=== PATIENT | female | born 1950 | race Caucasian/White ===

== ENCOUNTER 2023-04-05 10:13 | Inpatient (IN) | payer MEDICARE, OTHER, SELFPAY ==
[2023-04-05] VITALS (10 sets, daily range): BP systolic 109–147; BP diastolic 50–112; PULSE 80–112; RESP 16–20; TEMP 36.3–37.2; O2SAT 97–100; BMI 26.2
--- NOTE | ~2023-04-05 | XR_ITS ---
EXAMINATION: XR chest 2V DATE: 04/05/2023 11:23 INDICATION: Fall and weakness TECHNIQUE: frontal and lateral views of the chest were obtained. COMPARISON: None FINDINGS: The lungs are clear with no focal airspace opacities, pulmonary edema, pleural effusion or pneumothor ax. The heart size is normal. Tortuous and atherosclerotic thoracic aorta. Thoracolumbar dextroscolio sis with moderate spondylosis. IMPRESSION: 1. No acute cardiopulmonary disease. Reviewed, dictated and finalized at location A.
--- NOTE | ~2023-04-05 | CT_ITS ---
EXAMINATION: CT cervical spine wo con DATE: 04/05/2023 11:28 INDICATION: Fall with head injury TECHNIQUE: Computed tomography (CT) of the cervical spine was performed without intravenous contrast. Automated exposure control and iterative reconstruction technique were employed. The dose-length pro duct was 281.66 mGy-cm. COMPARISON: None FINDINGS: 13 degrees cervical levocurvature. 1-2 mm retrolisthesis C4 on C5. Vertebral body heights are normal. No fracture. Moderate osteoarthritis at the atlantoaxial articulation. Moderate disc height loss at C4-C5, C5-C6, C6-C7 and mild disc height loss at the remaining cervical and upper thoracic levels. Mo derate to severe multilevel cervical uncovertebral osteoarthritis. Posterior disc osteophyte complexe s at C4-C5, C5-C6 and C6-C7 resulting mild central canal stenosis. Multilevel mild to moderate cervic al facet osteoarthritis. Additional severe facet osteoarthritis on the left at T1-T2 and bilaterally at T2-T3. This contributes to multilevel bilateral neural foraminal stenosis throughout the cervical and visualized upper thoracic spine. Small amount of atherosclerotic calcific location at the bilater al carotid bulbs. Cervical soft tissues are otherwise unremarkable. Minimal biapical pleural-parenchy mal scarring. IMPRESSION: 1. 13 degrees cervical levocurvature with moderate spondylosis. No acute osseous abnormality. Reviewed, dictated and finalized at location A. IMPRESSION: 1. 13 degrees cervical levocurvature with moderate spondylosis. No acute osseou s abnormality.
--- NOTE | ~2023-04-05 | XR_ITS ---
EXAMINATION: XR pelvis 1-2V DATE: 04/05/2023 11:23 INDICATION: Fall with weakness TECHNIQUE: An anteroposterior view of the pelvis was obtained. COMPARISON: None. FINDINGS: Partially visualized lumbar levoscoliosis with severe lower lumbar facet osteoarthritis. No fractures . Mild osteoarthritis at the bilateral hip and sacroiliac joints. Several phleboliths in the pelvis. IMPRESSION: 1. No acute osseous abnormality. Reviewed, dictated and finalized at location A.
--- NOTE | ~2023-04-05 | CT_ITS ---
EXAMINATION: CT brain wo con DATE: 04/05/2023 11:28 INDICATION: Fall with head injury and weakness TECHNIQUE: Computed tomography (CT) of the head was performed without intravenous contrast. Sagittal and coronal reconstructions were performed. The mA was adjusted according to patient size. Iterative reconstruction technique was employed. The dose-length product was 605.33 mGy-cm. COMPARISON: None FINDINGS: No fracture. No acute intracranial hemorrhage, acute infarction or abnormal extra axial fluid collect ion. There is mild scattered white matter hypoattenuation consistent with chronic small vessel ischem ic disease. Symmetric prominence of the sulci consistent with mild age-appropriate diffuse cerebral v olume loss. Ventricles are normal and symmetric. No mass/mass effect. Changes of bilateral intraocula r lens replacement. Small amount of dependently layering mucus in the right maxillary sinus. The orbi ts and mastoid air cells are normal. IMPRESSION: 1. No fracture or acute intracranial process. 2. Age-related changes including mild diffuse volume loss and mild scattered white matter hypoattenua tion consistent with chronic small vessel ischemic disease. Reviewed, dictated and finalized at location A. IMPRESSION: 1. No fracture or acute intracranial process. 2. Age-related changes including mild diffuse volume loss and mild scattered wh ite matter hypoattenuation consistent with chronic small vessel ischemic diseas e.
--- NOTE | 2023-04-05 10:29 | ECG_ITS ---
Measurements Intervals [place] Rate: 75 P: 55 RI: 171 QRS: -17 QRSD: 81 T: 19 QT: 417 QTc: 467 Interpretive Statements SINUS RHYTHM LOW QRS VOLTAGE IN PRECORDIAL LEADS [QRS DEFLECTION < 1.0 mV IN CHEST LEADS] NO PREVIOUS ECG AVAILABLE FOR COMPARISON Electronically Signed On 04-05-2023 15:00:01 CDT by Jagruti Pacheco M.D.
--- NOTE | 2023-04-05 10:41 | ED.GENADULT ---
HPI - General Adult General Chief complaint: Unspecified <MARKUS David Last Filed: 04/05/23 15:17> Stated complaint: FALL, ?POOR CIRCULATION TO FEET <MARKUS David Last Filed: 04/05/23 15:17> Time Seen by Provider: 04/05/23 10:25 <MARKUS David Last Filed: 04/05/23 15:17> Source: patient and family <MARKUS David Last Filed: 04/05/23 15:17> Mode of arrival: wheelchair <MARKUS David Last Filed: 04/05/23 15:17> Limitations: other (poor historian) <MARKUS David Last Filed: 04/05/23 15:17> History of Present Illness HPI narrative: This is a 72-year-old female that presents to the emergency department after a ground-level fall last night. Patient's family member brought her in for evaluation. They report she was on the ground for multiple hours that she was unable to get up. She lives alone. Patient does report hitting her head. She does not believe she lost consciousness. She denies any other focal areas of injury or pain. Daughter believes she was drinking last night when she fell. Denies vision changes, vomiting, numbness or weakness. <Glory Singh PA-C - Last Filed: 04/05/23 15:17> Related Data Allergies/adverse reactions: Allergies Allergy/AdvReac Type Severity Reaction Status Date / Time No Known Allergies Allergy Unknown Unverified 06/08/14 15:43 <MARKUS David Last Filed: 04/05/23 15:17> Review of Systems Review of Systems: CONSTITUTIONAL: Denies fever EYES: Denies visual changes CARDIOVASCULAR: Denies chest pain, or edema. RESPIRATORY: Denies dyspnea. GASTROINTESTINAL: Denies vomiting MUSCULOSKELETAL: Denies back pain, joint pain, or myalgia. NEUROLOGIC: Denies headache, numbness, or weakness. <MARKUS David Last Filed: 04/05/23 15:17> All systems reviewed & are unremarkable except as noted in HPI and below <Glory Singh PA-C - Last Filed: 04/05/23 15:17> [facility] Past Medical History Medical History: Medical History (Updated 04/05/23 @ 15:17 by Glory Singh PA-C) Back pain History of hypertension History of hypothyroidism Hyperlipidemia <Glory Singh PA-C - Last Filed: 04/05/23 15:17> Surgical History Surgical History: Surgical History (Updated 04/05/23 @ 14:13 by Emilia Rojas NP) H/O carpal tunnel repair H/O cataract extraction H/O skin graft History of bunionectomy History of tonsillectomy <Glory Singh PA-C - Last Filed: 04/05/23 15:17> Family History Family History: Family History (Updated 04/05/23 @ 14:09 by Emilia Rojas NP) Sibling Thyroid disease Mother Lung cancer <Glory Singh PA-C - Last Filed: 04/05/23 15:17> Social History Social History: Social History (Updated 04/05/23 @ 14:12 by Emilia Rojas NP) Social History: 2 drinks of bourbon daily . no smoke . son and daughter Smoking status: Never smoker Alcohol intake: current Drinks per week: 14 Substance use: never Lack of Transportation: No Lack of Food: Never True Current Housing: I Have Housing Concerned About Future Housing: No Difficulty Paying Gas/Electric Bills: No Difficulty Paying for Meds: No Currently Unemployed: No Education: High School Diploma/GED Difficulty w/ Childcare or Family Care: No Spiritual care concerns: No <Glory Singh PA-C - Last Filed: 04/05/23 15:17> Exam Narrative: GENERAL: Elderly, well-nourished, and in no acute distress. HEAD: Normocephalic, atraumatic. EYES: PERRLA and EOMI. ENT: Nares clear, no rhinorrhea or epistaxis. Mucous membranes moist. Oropharynx without tonsillar hypertrophy exudate or other lesions. Bilateral TMs pearly michaud non-bulging NECK: Supple. No adenopathy or masses. No midline spinal tenderness CHEST: Clear to auscultation. No respiratory distress. No wheezes rales or rhonchi HEART: Regular rate and rhythm. No murmur heard. Nor
[2023-04-05 11:23] LABS: Basophils Absolute Auto 0.1 K/mm3 (0.0-0.1); Basophils Percent Auto 0.5 % (0.2-1.2); Hematocrit 39.9 % (37.0-47.0); Hemoglobin 13.6 g/dL (12.0-15.0); Immature Granulocyte Absolute 0.03 K/mm3 (0.00-0.031); Immature Granulocyte Percent A 0.3 % (0-0.5); Lymphocytes Absolute Auto 0.88 K/mm3 (0.9-3.2); Lymphocytes Percent Auto 8.7 % (18.3-44.2); Mean Corpuscular HGB Conc 34.1 g/dl (32-36); Mean Corpuscular Hemoglobin 36.8 pg (26-34); Mean Corpuscular Volume 107.8 fl (80-100); Mean Platelet Volume 9.1 fl (7.4-10.4); Monocytes Absolute Auto 0.8 K/mm3 (0.1-0.6); Monocytes Percent Auto 7.4 % (2.6-8.5); Neutrophils Absolute Auto 8.4 K/mm3 (1.3-6.7); Neutrophils Percent Auto 83.1 % (45.5-73.1); Platelet Count Result 197 k/mm3 (150-375); Red Cell Distribution Width 12.2 % (11.5-14.5); White Blood Count 10.1 K/mm3 (4.5-10.0)
[2023-04-05] MEDS: SODIUM CHLORIDE 0.9% IV 500 ML 999 ML IV CONT (11:36)
[2023-04-05 11:41] LABS: Macrocytosis 1+ (NORMAL); Platelet Estimate Adequate (Adequate); Schistocytes None Seen (NORMAL)
[2023-04-05 12:00] LABS: Ethanol 208 mg/dL (<10)
[2023-04-05 12:04] LABS: Alanine Aminotransferase 35 U/L (6-35); Albumin Level 4.4 g/dL (3.5-5.1); Alkaline Phosphatase 121 U/L (38-126); Anion Gap 18 mmol/L (8-16); Aspartate Amino Transferase 96 U/L (14-36); Bilirubin,Total 0.8 mg/dL (0.2-1.3); Blood Urea Nitrogen 17 mg/dL (7-17); Calcium 9.3 mg/dL (8.4-10.2); Carbon Dioxide 20 mmol/L (22-30); Chloride 101 mmol/L (98-107); Creatine Kinase 150 U/L (30-135); Estimated CRCL calculation 46 ml/min; Estimated Glomerular Filt Rate > 60; Glucose 60 mg/dL (65-110); Potassium 4.3 mmol/L (3.4-5.0); Sodium 139 mmol/L (137-145)
--- NOTE | 2023-04-05 12:08 | PC.NURSE ---
Pt blood glucose 60, per EDP NABEEL Singh PA-C, pt given soda and jello by this RN at this time.
[2023-04-05 12:49] LABS: Appearance Urine Clear (Clear); Bacteria Urine 4+ /hpf; Bilirubin Urine Negative (Negative); Blood Urine Negative (Negative); Color Urine Yellow (Yellow); Glucose Urine UA Negative (Negative); Hyaline Casts Urine Present /lpf; Ketones Urine Trace mg/dL (Negative); Leukocyte Esterase Ur Negative LEU/UL (Negative); Need Manual Microscopic Reviewed; Nitrate Urine Positive (Negative); Protein Urine Trace mg/dL (Negative); RBC Urine 0-2 /hpf (0-2); Specific Grav Ur 1.015 (1.001-1.035); Squamous Epithelial Cell Urine None seen /hpf (Few); Urobilinogen Urine 0.2 mg/dL (<2.0); WBC Urine 0-5 /hpf; pH Urine 5.5 (5.0-9.0)
[2023-04-05 12:50] LABS: Add Urine Microscopic? YES
[2023-04-05 13:17] LABS: Glucose Point of Care 104 mg/dl (65-105)
--- NOTE | 2023-04-05 14:05 | PM.IMHP ---
H&P: HPI History of Present Illness Date/Time: 04/05/23 14:05 Chief Complaint: Fall Narrative: This is a 72-year-old female patient who lives at home alone. The patient tells me that she drinks 2 glasses of bourbon and sometimes some white wine when she is cooking. This is usually on a daily basis. The patient has had multiple falls. The patient stated that she does call the fire department at times did get her up off the ground. She does not have a call alert button. Her children have been trying to talk to her about getting a call alert button. The patient not came to the emergency room after ground level fall that she had last night. Family member brought her into the emergency room for evaluation. The patient denies hitting her head. The daughter believes that the patient was drinking last night when she fell. The patient denies any focal weakness or any visual changes. No nausea vomiting or diarrhea. She did not lose consciousness. Her white count was found to be 10.0. MCV is 107.8. Her anion gap is 18. Her blood sugar was found to be 60. Repeat blood sugar was 85. AST is 96. Total creatinine kinase 150. Her urine was positive for bacteria nitrates and she was started on Rocephin IV. Cervical spine CT was read as 13 degree cervical levocurvature with moderate spondylosis. No acute osseous abnormality. Pelvis x-ray was read as no acute osseous abnormality. Chest x-ray was read as no acute cardiopulmonary disease. Head CT was read as. No fracture or acute intracranial process. 2. Age-related changes including mild diffuse volume loss and mild scattered white matter hypoattenuation consistent with chronic small vessel disease. The patient was given IV fluids and Rocephin. The patient is being admitted to observation status on the date of service of 04/05/2023. Review of Systems Review of Systems: All systems reviewed & are unremarkable except as noted in HPI and below Constitutional: Constitutional: Reports as per HPI and Reports no additional constitutional complaints Eyes: Eyes: Reports as per HPI and Reports no additional eye complaints ENT: Reports system reviewed and no additional complaints, except as documented and Reports Normal hearing present Cardiovascular: Cardiovascular: Reports no additional cardiovascular complaints Respiratory: Respiratory: Reports no additional respiratory complaints and Reports no additional respiratory complaints Gastrointestinal: Gastrointestinal: Reports as per HPI and Reports no additional gastrointestinal complaints Musculoskeletal: Musculoskeletal: Reports no additional musculoskeletal complaints Integumentary/Breasts: Skin/Breast: Reports system reviewed and no additional complaints, except as docu and Reports as per HPI Neurologic: Reports system reviewed and no additional complaints, except as documented, Reports as per HPI and Reports Normal hearing present Psychiatric: Psychiatric: Reports no additional psychiatric complaints and Reports as per HPI Endocrine: Endocrine: Reports no additional endocrine complaints Hematologic/Lymphatic: Hematologic/Lymphatic: Reports no additional hematologic/lymphatic complaints Allergic/Immunologic: Allergic/Immunologic: Reports no additional allergic/immunologic complaints [facility] Past Medical History Medical History (Updated 04/05/23 @ 18:52 by Emilia Rojas NP) Back pain History of hypertension History of hypothyroidism Hyperlipidemia Surgical History Surgical History (Updated 04/05/23 @ 18:47 by Emilia Rojas NP) H/O bladder repair surgery H/O breast biopsy H/O carpal tunnel repair Left H/O cataract extraction H/O skin graft H/O tubal ligation History of bunionectomy History of tonsillectomy Family History Family History Sibling Thyroid disease Mother Lung cancer Social History Social History (Updated 04/05/23 @ 18:49 by Emilia Rojas NP
[2023-04-05 16:40] LABS: Glucose Point of Care 85 mg/dl (65-105)
[2023-04-05 18:44] LABS: Glucose Point of Care 84 mg/dl (65-105)
[2023-04-05] MEDS: SODIUM CHLORIDE 0.9% IV 1,000 ML 100 ML IV CONT (20:35)
[2023-04-05 21:48] LABS: Glucose Point of Care 90 mg/dl (65-105)
[2023-04-05 23:29] LABS: Glucose Point of Care 83 mg/dl (65-105)
[2023-04-06] VITALS (11 sets, daily range): BP systolic 129–144; BP diastolic 61–78; PULSE 79–102; RESP 16; TEMP 36.4–36.8; O2SAT 98–100
[2023-04-06] MEDS: chlordiazePOXIDE (*CRX) 25 MG CAPSULE 50 MG PO ×3 (00:20→18:51)
[2023-04-06 05:14] LABS: Basophils Absolute Auto 0.1 K/mm3 (0.0-0.1); Basophils Percent Auto 1.1 % (0.2-1.2); Eosinophils Absolute Auto 0.1 K/mm3 (0-0.3); Eosinophils Percent Auto 1.1 % (0-4.4); Hematocrit 36.1 % (37.0-47.0); Hemoglobin 12.3 g/dL (12.0-15.0); Immature Granulocyte Absolute 0.02 K/mm3 (0.00-0.031); Immature Granulocyte Percent A 0.4 % (0-0.5); Lymphocytes Absolute Auto 1.05 K/mm3 (0.9-3.2); Lymphocytes Percent Auto 18.8 % (18.3-44.2); Mean Corpuscular HGB Conc 34.1 g/dl (32-36); Mean Corpuscular Hemoglobin 36.5 pg (26-34); Mean Corpuscular Volume 107.1 fl (80-100); Mean Platelet Volume 9.4 fl (7.4-10.4); Monocytes Absolute Auto 0.6 K/mm3 (0.1-0.6); Monocytes Percent Auto 10.2 % (2.6-8.5); Neutrophils Absolute Auto 3.8 K/mm3 (1.3-6.7); Neutrophils Percent Auto 68.4 % (45.5-73.1); Platelet Count Result 172 k/mm3 (150-375); Red Blood Count 3.37 M/mm3 (4.2-5.4); Red Cell Distribution Width 11.7 % (11.5-14.5); White Blood Count 5.6 K/mm3 (4.5-10.0)
[2023-04-06 05:19] LABS: Lactic Acid Reflex 0.7 mmol/L (0.7-2.0)
[2023-04-06 05:25] LABS: Chloride 101 mmol/L (98-107)
[2023-04-06 05:29] LABS: Alanine Aminotransferase 30 U/L (6-35); Albumin Level 3.7 g/dL (3.5-5.1); Alkaline Phosphatase 101 U/L (38-126); Anion Gap 8 mmol/L (8-16); Aspartate Amino Transferase 64 U/L (14-36); Blood Urea Nitrogen 21 mg/dL (7-17); Calcium 8.4 mg/dL (8.4-10.2); Carbon Dioxide 24 mmol/L (22-30); Creatine Kinase 81 U/L (30-135); Estimated CRCL calculation 46 ml/min; Estimated Glomerular Filt Rate > 60; Glucose 80 mg/dL (65-110); Magnesium 1.5 mg/dL (1.6-2.3); Potassium 4.2 mmol/L (3.4-5.0); Sodium 133 mmol/L (137-145)
[2023-04-06] MEDS: SODIUM CHLORIDE 0.9% IV 1,000 ML 100 ML IV CONT (06:17)
[2023-04-06] MEDS: LEVOTHYROXINE SODIUM 50 MCG TABLET PO (09:50)
[2023-04-06] MEDS: EZETIMIBE 10 MG TABLET PO (09:52)
[2023-04-06] MEDS: TELMISARTAN 40 MG TABLET 80 MG PO (09:52)
[2023-04-06 11:53] LABS: Glucose Point of Care 117 mg/dl (65-105)
--- NOTE | 2023-04-06 13:46 | PM.IMPN ---
Progress Note: A&P Assessment and Plan (1) Hypoglycemia: Code(s): E16.2 - Hypoglycemia, unspecified Status: Acute Assessment and Plan: improved (2) Fall: Code(s): W19.XXXA - Unspecified fall, initial encounter Status: Acute Assessment and Plan: Head CT 04/05/23 12:01 IMPRESSION: 1. No fracture or acute intracranial process. 2. Age-related changes including mild diffuse volume loss and mild scattered white matter hypoattenuation consistent with chronic small vessel ischemic disease. Chest X-Ray 04/05/23 12:19 IMPRESSION: 1. No acute cardiopulmonary disease. Pelvis X-Ray 04/05/23 12:20 IMPRESSION: 1. No acute osseous abnormality. Cervical Spine CT 04/05/23 12:25 IMPRESSION: 1. 13 degrees cervical levocurvature with moderate spondylosis. No acute osseous abnormality. retail marketing coordinator consult greatly be appreciated. retail marketing coordinator for home health or placement. The patient lives home alone. The patient was found to be intoxicated. PT and OT evaluation greatly be appreciated. I spoke with the son and daughter who stated that they will get her call alert button. Also the patient has UTI and will be treated for UTI which may be causing her weakness. Most likely multifactorial if she had elevated alcohol level of 208. (3) Alcohol intoxication: Qualifiers: Complication of substance-induced condition: uncomplicated Qualified Code(s): F10.920 - Alcohol use, unspecified with intoxication, uncomplicated Code(s): F10.929 - Alcohol use, unspecified with intoxication, unspecified Status: Acute Assessment and Plan: Her alcohol level was 208. Continue with CIWA score. retail marketing coordinator consult was greatly be appreciated. (4) Hyperlipidemia: Code(s): E78.5 - Hyperlipidemia, unspecified Status: Acute Assessment and Plan: Continue with Zetia (5) History of hypothyroidism: Code(s): Z86.39 - Personal history of other endocrine, nutritional and metabolic disease Status: Acute Assessment and Plan: Continue with levothyroxine and check thyroid level. (6) History of hypertension: Code(s): Z86.79 - Personal history of other diseases of the circulatory system Status: Acute Assessment and Plan: History of hypertension and current. Continue with telmisartan (7) Acute UTI: Code(s): N39.0 - Urinary tract infection, site not specified Status: Acute Assessment and Plan: Blood and urine cultures are pending continue with Rocephin. Plan pt ot for dc recs Subjective Date/time seen: 04/06/23 13:46 Interval history: no complaints Exam Const: General: cooperative, healthy appearing, comfortable, no acute distress, well developed, alert, awake, Physically active, average body habitus and well nourished Nutritional Appearance: average body habitus and well nourished Orientation/consciousness: oriented to person, oriented to place, oriented to time and patient oriented x3 Limitations: no limitations HENMT: Head: normal to inspection, No palpable skull fracture present, normocephalic, atraumatic and abrasion Ears: hearing grossly normal bilaterally, external ears normal and TM's normal bilaterally Face/Nose/Sinus: Normal external nose present, Normal nares present and No nasal polyps present Mouth: Yes Normal oral and palatal mucosa present Throat: posterior oropharynx normal Eyes: General: appearance normal, both eyes and all related structures Alignment and Position: alignment normal Periorbital: periorbital findings normal Eyelids: eyelids normal Conjunctivae: conjunctivae normal Sclera: sclerae normal Cornea: corneas normal Pupils: Equal, round and reactive pupils present and Pupil accommodation reflex normal EOM: EOMs intact bilaterally Neck: Neck: normal visual inspection, full ROM, no lymphadenopathy, trachea midline and supple Thyroid: thyroid normal Carotids: n
--- NOTE | 2023-04-06 16:34 | PC.NURSE ---
This patient, Joya Antonio, was transferred to [facility] on 04/06/23 at 1634. Personal belongings sent with patient. Report given to Aimee MASON. Appropriate documentation sent with patient.
[2023-04-06] MEDS: LORazepam INJ (*CRX) 2 MG/ML VIAL IV PUSH (17:12)
[2023-04-06 18:06] LABS: Glucose Point of Care 115 mg/dl (65-105)
[2023-04-07] VITALS: BP 137/67; PULSE 78; RESP 16; TEMP 35.9; O2SAT 98
[2023-04-07 00:14] LABS: Glucose Point of Care 138 mg/dl (65-105)
[2023-04-07 06:26] VITALS: BP 131/66; PULSE 74; RESP 16; TEMP 35.7; O2SAT 100
[2023-04-07 06:49] LABS: Glucose Point of Care 97 mg/dl (65-105)
[2023-04-07] MEDS: TELMISARTAN 40 MG TABLET 80 MG PO (08:30)
[2023-04-07] MEDS: LEVOTHYROXINE SODIUM 50 MCG TABLET PO (08:30)
[2023-04-07] MEDS: EZETIMIBE 10 MG TABLET PO (08:30)
--- NOTE | 2023-04-07 11:00 | PM.DS ---
DS: Admitting Diagnosis Discharge Date April 07, 2023 Admitting Diagnosis Fall DS: Discharge Diagnosis Discharge Diagnosis (1) Hypoglycemia: Code(s): E16.2 - Hypoglycemia, unspecified Status: Acute Assessment and Plan: improved (2) Fall: Code(s): W19.XXXA - Unspecified fall, initial encounter Status: Acute Assessment and Plan: Head CT 04/05/23 12:01 IMPRESSION: 1. No fracture or acute intracranial process. 2. Age-related changes including mild diffuse volume loss and mild scattered white matter hypoattenuation consistent with chronic small vessel ischemic disease. Chest X-Ray 04/05/23 12:19 IMPRESSION: 1. No acute cardiopulmonary disease. Pelvis X-Ray 04/05/23 12:20 IMPRESSION: 1. No acute osseous abnormality. Cervical Spine CT 04/05/23 12:25 IMPRESSION: 1. 13 degrees cervical levocurvature with moderate spondylosis. No acute osseous abnormality. marketing technology coordinator consult greatly be appreciated. marketing technology coordinator for home health or placement. The patient lives home alone. The patient was found to be intoxicated. PT and OT evaluation greatly be appreciated. I spoke with the son and daughter who stated that they will get her call alert button. Also the patient has UTI and will be treated for UTI which may be causing her weakness. Most likely multifactorial if she had elevated alcohol level of 208. (3) Alcohol intoxication: Qualifiers: Complication of substance-induced condition: uncomplicated Qualified Code(s): F10.920 - Alcohol use, unspecified with intoxication, uncomplicated Code(s): F10.929 - Alcohol use, unspecified with intoxication, unspecified Status: Acute Assessment and Plan: Her alcohol level was 208. Continue with CIWA score. marketing technology coordinator consult was greatly be appreciated. (4) Hyperlipidemia: Code(s): E78.5 - Hyperlipidemia, unspecified Status: Acute Assessment and Plan: Continue with Zetia (5) History of hypothyroidism: Code(s): Z86.39 - Personal history of other endocrine, nutritional and metabolic disease Status: Acute Assessment and Plan: Continue with levothyroxine and check thyroid level. (6) History of hypertension: Code(s): Z86.79 - Personal history of other diseases of the circulatory system Status: Acute Assessment and Plan: History of hypertension and current. Continue with telmisartan (7) Acute UTI: Code(s): N39.0 - Urinary tract infection, site not specified Status: Acute Assessment and Plan: Blood and urine cultures are pending continue with Rocephin. Plan pt ot for dc recs DS: Summary Hospital Course Hospital Course: Fall, likely related to acute alcohol intoxication. Also found have a slight UTI. Antibiotics on discharge. Otherwise patient was working with physical therapy and doing normal activities. She is at risk for falling again especially if she consumes alcohol. Patient can be discharged. Time Spent with Patient Time attestation: Total time spent providing and/or coordinating discharge services: Exam Const: General: cooperative, healthy appearing, comfortable, no acute distress, well developed, alert, awake, Physically active, average body habitus and well nourished Nutritional Appearance: average body habitus and well nourished Orientation/consciousness: oriented to person, oriented to place, oriented to time and patient oriented x3 Limitations: no limitations HENMT: Head: normal to inspection, No palpable skull fracture present, normocephalic, atraumatic and abrasion Ears: hearing grossly normal bilaterally, external ears normal and TM's normal bilaterally Face/Nose/Sinus: Normal external nose present, Normal nares present and No nasal polyps present Mouth: Yes Normal oral and palatal mucosa present Throat: posterior oropharynx normal Eyes: General: appearance normal, both eyes and all re
[2023-04-07 11:29] LABS: Glucose Point of Care 102 mg/dl (65-105)
== END 2023-04-07 13:40 | disposition home or self-care (01) | DRG 897 ==
LOC: ANHED 10:38 → ANHIMU 14:37 → ANH3MEDSUR 04-06 16:16
PROVIDERS: Nurse Practitioner; Admitting Provider Family Medicine; Emergency Provider Physician Assistant; PCP Nurse Practitioner; Visit Provider Chiropractor
DX: F10.920 Alcohol use, unspecified with intoxication, uncomplicated (principal); N39.0 Urinary tract infection, site not specified; W19.XXXA Unspecified fall, initial encounter; Y90.7 Blood alcohol level of 200-239 mg/100 ml; E78.5 Hyperlipidemia, unspecified; E16.2 Hypoglycemia, unspecified; E03.9 Hypothyroidism, unspecified; I10 Essential (primary) hypertension; M47.812 Spondylosis without myelopathy or radiculopathy, cervical region
CPT/HCPCS: 36415; 70450; 71046; 72125; 72170; 80053; 80307; 81001; 82550; 82948; 83605; 83735; 84443; 85025; 87040; 87086; 87088; 93005; 96361; 96365; 96366; 97161; 99285; A9270; G0378; J0696; J2060; J7030; J7040

== ENCOUNTER 2024-02-25 09:42 | Emergency (ER) | payer MEDICARE, OTHER, SELFPAY ==
--- NOTE | ~2024-02-25 | XR_ITS ---
EXAMINATION: XR chest 2V DATE: 02/25/2024 12:06 INDICATION: Fall. Weakness. Right neck lump. TECHNIQUE: Frontal and lateral views of the chest were obtained. COMPARISON: Chest 2 views 04/05/2023 FINDINGS: There is no pneumonia, pleural effusion, or pneumothorax. The heart size is normal. IMPRESSION: 1. No acute cardiopulmonary disease. Reviewed, dictated and finalized at location A.
--- NOTE | ~2024-02-25 | CT_ITS ---
EXAMINATION: CT lumbar spine wo con DATE: 02/25/2024 11:45 INDICATION: Low back pain. Fall. TECHNIQUE: Computed tomography (CT) of the lumbar spine was performed without intravenous contrast. A utomated exposure control and iterative reconstruction technique were employed. The dose-length produ ct was 864.09 mGy-cm. COMPARISON: None FINDINGS: There is 33 degrees levoscoliosis of lumbar spine. There is mild chronic anterior wedging o f L1 vertebral body. There is severely decreased disc height at T10-T11 and T11-T12, moderately decre ased disc height at T12-L1, severely decreased disc height from L1-L2 through L3-L4, moderately decre ased disc height at L4-L5, and severely decreased disc height at L5-S1. The following disc levels are specifically discussed: L1-L2: The disc is bulging. There is mild bilateral facet joint osteoarthritis. There is mild bilater al neural foraminal stenosis. There is mild central canal stenosis. L2-L3: The disc is bulging. There is mild bilateral facet joint osteoarthritis. There is mild bilater al neural foraminal stenosis. There is mild central canal stenosis. L3-L4: The disc is bulging. There is severe bilateral facet joint osteoarthritis. There is mild bilat eral neural foraminal stenosis. There is mild central canal stenosis. L4-L5: The disc is bulging. There is severe bilateral facet joint osteoarthritis. There is moderate b ilateral neural foraminal stenosis. There is moderate central canal stenosis. L5-S1: The disc is bulging. There is severe bilateral facet joint osteoarthritis. There is mild right and moderate left neural foraminal stenosis. There is mild central canal stenosis. IMPRESSION: 1. No fracture. 2. Severe lumbar spondylosis. 3. Lumbar levoscoliosis. Reviewed, dictated and finalized at location A.
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
--- NOTE | ~2024-02-25 | CT_ITS ---
EXAMINATION: CT cervical spine wo con DATE: 02/25/2024 11:45 INDICATION: Neck injury. Fall. Right neck swelling. Neck pain. TECHNIQUE: Computed tomography (CT) of the cervical spine was performed without intravenous contrast. Automated exposure control and iterative reconstruction technique were employed. The dose-length pro duct was 369.27 mGy-cm. COMPARISON: CT cervical spine 04/05/2023 FINDINGS: There is 5 degrees levocurvature of cervical spine. Vertebral body heights are normal. Ther e is moderately decreased disc height at C3-C4, severely decreased disc height at C4-C5, moderately d ecreased disc height at C5-C6 and C6-C7. The following disc levels are specifically discussed: C2-C3: There is mild left uncovertebral joint osteoarthritis. There is mild bilateral facet joint ost eoarthritis. There is mild left neural foraminal stenosis. There is no central canal stenosis. C3-C4: There is moderate bilateral uncovertebral joint osteoarthritis. There is moderate right and mi ld left facet joint osteoarthritis. There is mild bilateral neural foraminal stenosis. There is no ce ntral canal stenosis. C4-C5: There is severe bilateral uncovertebral joint osteoarthritis. There is moderate bilateral face t joint osteoarthritis. There is mild right and moderate left neural foraminal stenosis. There is mil d central canal stenosis. C5-C6: There is severe bilateral uncovertebral joint osteoarthritis. There is mild bilateral facet keren int osteoarthritis. There is mild bilateral neural foraminal stenosis. There is mild central canal st enosis. C6-C7: There is severe bilateral uncovertebral joint osteoarthritis. There is mild bilateral facet keren int osteoarthritis. There is mild bilateral neural foraminal stenosis. There is mild central canal st enosis. C7-T1: There is no uncovertebral joint osteoarthritis. There is severe bilateral facet joint osteoart hritis. There is mild bilateral neural foraminal stenosis. There is no central canal stenosis. IMPRESSION: 1. No fracture. 2. Severe cervical spondylosis. Reviewed, dictated and finalized at location A.
[2024-02-25 09:47] VITALS: BP 137/66; PULSE 91; RESP 12; TEMP 36.4; O2SAT 100
--- NOTE | 2024-02-25 10:02 | ED.NECK ---
HPI - Neck Pain/Injury General Chief Complaint: Neck Pain/Injury Stated Complaint: R NECK SWELLING S/P FALL Time Seen by Provider: 02/25/24 09:47 Source: patient and family Mode of arrival: ambulatory Limitations: no limitations History of Present Illness HPI Narrative: This is a 73-year-old female that presents to the emergency department after a head injury Friday. Reports she woke up in the middle the night to use the restroom. She lost her balance and fell and hit her head on the bathtub she believes. She did not lose consciousness. The next day she went to urgent care and had an x-ray of her sacrum which showed a fracture. Since she has had swelling and pain on the right side of her neck which prompted her family to bring her in for evaluation. They believe she has been mildly confused. She does not take any blood thinners. Denies vision changes, vomiting, numbness, weakness. Related Data Home Medications Medication Instructions Recorded Confirmed ezetimibe 10 mg tablet 10 mg PO DAILY 04/05/23 04/05/23 levothyroxine 50 mcg tablet 50 mcg PO DAILY 04/05/23 04/05/23 telmisartan 80 mg tablet 80 mg PO DAILY 04/05/23 04/05/23 Allergies Allergy/AdvReac Type Severity Reaction Status Date / Time No Known Allergies Allergy Unknown Verified 02/25/24 09:52 Review of Systems Review of Systems: CONSTITUTIONAL: Denies fever EYES: Denies visual changes GASTROINTESTINAL: Denies vomiting MUSCULOSKELETAL: Reports back pain, joint pain, and myalgia. NEUROLOGIC: Denies numbness, or weakness. All systems reviewed & are unremarkable except as noted in HPI and below [facility] Past Medical History Medical History (Updated 02/25/24 @ 13:18 by Glory Singh PA-C) Back pain History of hypertension History of hypothyroidism Hyperlipidemia Surgical History Surgical History (Updated 04/05/23 @ 18:47 by Emilia Rojas NP) H/O bladder repair surgery H/O breast biopsy H/O carpal tunnel repair Left H/O cataract extraction H/O skin graft H/O tubal ligation History of bunionectomy History of tonsillectomy Family History Family History Sibling Thyroid disease Mother Lung cancer Social History Social History (Updated 04/05/23 @ 18:49 by Emilia Rojas NP) Social History: She had 2 drinks of bourbon daily and sometimes has a glass of white wine when she cooks. She is a lifelong nonsmoker. She is . She has a son and daughter. 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 Code status full code Smoking status: Never smoker Alcohol intake: current Drinks per week: 14 Substance use: never Lack of Transportation: No Lack of Food: Never True Current Housing: I Have Housing Concerned About Future Housing: No Difficulty Paying Gas/Electric Bills: No Difficulty Paying for Meds: No Currently Unemployed: No Education: High School Diploma/GED Difficulty w/ Childcare or Family Care: No Spiritual care concerns: No Exam Narrative: GENERAL: Well-appearing, well-nourished, and in no acute distress. HEAD: Normocephalic, atraumatic. EYES: PERRLA and EOMI. ENT: Nares clear, no rhinorrhea or epistaxis. Mucous membranes moist. Oropharynx without tonsillar hypertrophy exudate or other lesions. Bilateral TMs pearly michaud non-bulging NECK: Supple. Hematoma to the right side of the neck anteriorly CHEST: Clear to auscultation. No respiratory distress. No wheezes rales or rhonchi HEART: Regular rate and rhythm. No murmur heard. Normal peripheral pulses. BACK: No midline thoracic spine tenderness. Tender to palpation of midline lumbar spine EXTREMITIES: Normal range of motion. No edema. Strength equal in bilateral upper and lower extremities (5/5) SKIN: Warm, dry, no rash. NEURO: No focal deficits. Alert and oriented x3. CN II-XII grossly intact PSYCH: Normal mood and affect Course Course Emerg
[2024-02-25 10:13] VITALS: BP 127/84; PULSE 92; RESP 14; O2SAT 99
[2024-02-25 10:21] LABS: Basophils Percent Auto 0.7 % (0.2-1.2); Eosinophils Absolute Auto 0.2 K/mm3 (0-0.3); Eosinophils Percent Auto 2.8 % (0-4.4); Hematocrit 38.3 % (37.0-47.0); Hemoglobin 13.1 g/dL (12.0-15.0); Immature Granulocyte Absolute 0.02 K/mm3 (0.00-0.031); Immature Granulocyte Percent A 0.3 % (0-0.5); Lymphocytes Absolute Auto 0.87 K/mm3 (0.9-3.2); Lymphocytes Percent Auto 14.6 % (18.3-44.2); Mean Corpuscular HGB Conc 34.2 g/dl (32-36); Mean Corpuscular Hemoglobin 36.5 pg (26-34); Mean Corpuscular Volume 106.7 fl (80-100); Mean Platelet Volume 9.6 fl (7.4-10.4); Monocytes Absolute Auto 0.8 K/mm3 (0.1-0.6); Monocytes Percent Auto 13.9 % (2.6-8.5); Neutrophils Percent Auto 67.7 % (45.5-73.1); Platelet Count Result 225 k/mm3 (150-375); Red Blood Count 3.59 M/mm3 (4.2-5.4); Red Cell Distribution Width 12.1 % (11.5-14.5)
[2024-02-25 10:52] LABS: Anion Gap 7 mmol/L (4-12); Blood Urea Nitrogen 14 mg/dL (7-17); Calcium 9.2 mg/dL (8.4-10.2); Carbon Dioxide 25 mmol/L (22-30); Chloride 98 mmol/L (98-107); Estimated Glomerular Filt Rate > 60; Glucose 105 mg/dL (65-110); Potassium 4.5 mmol/L (3.4-5.0); Sodium 130 mmol/L (137-145)
[2024-02-25 12:20] VITALS: BP 134/69; PULSE 91; RESP 18; O2SAT 97
[2024-02-25 13:32] VITALS: BP 126/67; PULSE 85; RESP 16; O2SAT 100
== END 2024-02-25 13:40 | disposition home or self-care (01) ==
PROVIDERS: Emergency Provider Physician Assistant; PCP Nurse Practitioner Family
DX: S10.93XA Contusion of unspecified part of neck, initial encounter (principal); E87.1 Hypo-osmolality and hyponatremia; I10 Essential (primary) hypertension; E03.9 Hypothyroidism, unspecified; E78.5 Hyperlipidemia, unspecified; Z98.49 Cataract extraction status, unspecified eye; Z79.899 Other long term (current) drug therapy; M47.812 Spondylosis without myelopathy or radiculopathy, cervical region; M47.816 Spondylosis without myelopathy or radiculopathy, lumbar region; W01.198A Fall on same level from slipping, tripping and stumbling with subsequent striking against other object, initial encounter
CPT/HCPCS: 36415; 70496; 70498; 71046; 72125; 72131; 80048; 85025; 99284; Q9967

== ENCOUNTER 2025-03-24 21:13 | Inpatient (IN) | payer MEDICARE, OTHER, SELFPAY ==
--- NOTE | ~2025-03-24 | CT_ITS ---
EXAMINATION: CT brain wo con DATE: 03/24/2025 22:26 INDICATION: Altered mental status post fall TECHNIQUE: Computed tomography (CT) of the head was performed without intravenous contrast. Sagittal and coronal reconstructions were performed. The mA was adjusted according to patient size. Iterative reconstruction technique was employed. The dose-length product was 681.00 mGy-cm. COMPARISON: head CT dated 02/25/2024 FINDINGS: No acute intracranial hemorrhage, acute infarction or abnormal extra axial fluid collection. There is mild scattered white matter hypoattenuation consistent with chronic small vessel ischemic disease. S ymmetric prominence of the sulci consistent with mild age-appropriate diffuse cerebral volume loss. A nd ventricles are normal and symmetric. No mass/mass effect. Changes of bilateral intraocular lens re placement. The orbits, paranasal sinuses and mastoid air cells are normal. IMPRESSION: 1. No acute intracranial process. 2. Age-related changes including mild diffuse volume loss and mild scattered white matter hypoattenua tion consistent with chronic small vessel ischemic disease. Reviewed, dictated and finalized at location A. IMPRESSION: 1. No acute intracranial process. 2. Age-related changes including mild diffuse volume loss and mild scattered wh ite matter hypoattenuation consistent with chronic small vessel ischemic diseas e.
--- NOTE | ~2025-03-24 | CT_ITS ---
EXAMINATION: 1. CT facial & cervical spine wo DATE: 03/24/2025 22:34 INDICATION: Fall with bruising to the left eye TECHNIQUE: 1. Computed tomography (CT) of the maxillofacial region and of the cervical spine were performed with out intravenous contrast. Sagittal and coronal reconstructions of both regions were obtained. Automat ed exposure control and iterative reconstruction technique were employed. The dose-length product was mGy-cm. COMPARISON: None. FINDINGS: Maxillofacial CT: Anterior left frontal/left supraorbital scalp hematoma. No calvarial fracture. No maxillofacial fract ures. Specifically the mandible, nasal bones, zygomatic arches and king of the orbits and paranasal sinuses are all intact. Changes of bilateral intraocular lens replacement. Orbits are otherwise norm al. Mastoid air cells, middle ear cavities and paranasal sinuses are all clear. Multiple dental daren rations. Cervical spine CT: Alignment is normal. Vertebral body heights are normal. No acute fracture. Severe disc height loss at C4-C5 and T1-T2. Mild disc height loss at C2-C3 and C7-T1 and moderate disc height loss at remaining cervical levels. Posterior endplate osteophytes contribute to mild central canal stenosis at C4-C5 t hrough C6-C7. There is severe bilateral uncovertebral osteoarthritis at C4-C5 with mild to moderate u ncovertebral osteoarthritis the remaining cervical levels. Mild to moderate multilevel facet osteoart hritis in the cervical spine and moderate to severe facet osteoarthritis the visualized upper thoraci c spine. The facet and vertebral osteoarthritis contributing to moderate neural foraminal stenosis on the left at C4-C5 and T2 and mild neural foraminal stenosis at majority the remaining cervical and u pper thoracic neural foramina. A scar calcific a cyst at the bilateral carotid bulbs. Cervical soft t issues are otherwise unremarkable. Mild biapical pleural-parenchymal scarring. IMPRESSION: 1. Left supraorbital scalp hematoma with no calvarial or maxillofacial fracture. 2. Severe cervical and upper thoracic spondylosis with no acute osseous abnormality. Reviewed, dictated and finalized at location A. IMPRESSION: 1. Left supraorbital scalp hematoma with no calvarial or maxillofacial fracture . 2. Severe cervical and upper thoracic spondylosis with no acute osseous abnorma lity.
--- NOTE | ~2025-03-24 | US_ITS ---
EXAMINATION: US carotid duplex BI DATE: 03/25/2025 17:51 INDICATION: Carotid atherosclerosis TECHNIQUE: Grayscale, color Doppler, and pulsed Doppler images of the cervical carotid arteries were obtained. The degree of vessel stenosis is placed in one of the following categories: normal, <50%, 5 0-69%, >=70% but less than near-occlusion, near-occlusion, or total occlusion. Note that percent sten osis relative to normal distal artery lumen diameter is indirectly measured from velocity measurement s as described by Suraj, et al. Radiology 2003; 229:340-346. COMPARISON: Carotid CT angiogram dated 02/25/2024 FINDINGS: RIGHT: The right common carotid artery (CCA) peak systolic velocity (PSV) is 61 cm/s. The right internal car otid artery (ICA) PSV is 64 cm/s. The right ICA end-diastolic velocity (EDV) is 15 cm/s. The right IC A/CCA PSV ratio is 1.0. Grayscale and color Doppler images yield an estimate of <50% diameter reducti on from plaque in the ICA. The external carotid artery (ECA) PSV is 90 cm/s. There is antegrade flow in the right vertebral artery. LEFT: The left CCA PSV is 71 cm/s. The left ICA PSV is 63 cm/s. The left ICA EDV is 16 cm/s. The left ICA/C CA PSV ratio is 0.9. Grayscale and color Doppler images yield an estimate of <50% diameter reduction from plaque in the ICA. The ECA PSV is 71 cm/s. There is antegrade flow in the left vertebral artery. IMPRESSION: 1. <50% stenosis in the right internal carotid artery. 2. <50% stenosis in the left internal carotid artery. Reviewed, dictated and finalized at location A.
--- NOTE | ~2025-03-24 | XR_ITS ---
EXAMINATION: XR chest 1V portable DATE: 03/24/2025 22:40 INDICATION: Altered mental status. Fall. TECHNIQUE: frontal view of the chest was obtained. COMPARISON: Chest radiograph dated 02/25/2024 FINDINGS: Calcified nodule at the right lung base consistent with old granulomatous disease. No other airspace opacities, pulmonary edema, pleural effusion or pneumothorax. Heart size is normal. Tortuous thoracic aorta. Mild thoracolumbar dextrocurvature with moderate spondylosis. IMPRESSION: 1. No acute cardiopulmonary disease. Reviewed, dictated and finalized at location A.
--- NOTE | ~2025-03-24 | CT_ITS ---
EXAMINATION: CT chest abdomen pelvis w con DATE: 03/24/2025 23:32 INDICATION: Altered mental status. Found on ground. Transaminitis. TECHNIQUE: Computed tomography (CT) of the chest, abdomen, and pelvis was performed with 100 mL Omnip aque-350 intravenous contrast. Automated exposure control and iterative reconstruction technique were employed. The dose-length product was 672.86 mGy-cm. COMPARISON: None FINDINGS: CHEST CT: Mild dependent atelectasis in the bilateral lower lobes. No pneumonia, pulmonary edema, pleural effus ion or pneumothorax. Calcite left upper lobe nodules along with calcified right hilar lymph nodes con sistent with old granulomatous disease. Heart size is normal. Atherosclerotic coronary artery calcifi c lesion. Prominent aortic valve calcific lesion. Thoracic aorta is normal in caliber with no dissect ion. No pathologically enlarged thoracic lymphadenopathy. Small sliding-type hiatal hernia. Severe th oracic spondylosis. Mild thoracolumbar dextrocurvature with mild likely physiologic anterior wedging at T12. No acute fractures identified. ABDOMEN/PELVIS CT: Nodular cirrhotic liver. Recanalized umbilical vein consistent with portal venous hypertension. A few small calcified gallstones at the dependent aspect of the otherwise normal gallbladder. Several sple ghada calcific lesions consistent with old granulomatous disease. Pancreas, bilateral adrenal glands an d kidneys are normal. There are few scattered clonic diverticula without adjacent inflammatory strand ing to suggest diverticulitis. Small bowel and appendix are normal. Bladder, retroverted uterus and b ilateral adnexa are unremarkable. No free intraperitoneal gas or fluid. No pathologically enlarged ab dominal or pelvic lymphadenopathy. Moderate lumbar levocurvature with severe spondylosis. No fracture s identified. IMPRESSION: 1. No acute fracture or acute intrathoracic, abdominal or pelvic process. 2. Cirrhosis with portal venous hypertension. 3. Cholelithiasis. 4. Small sliding-type hiatal hernia. Reviewed, dictated and finalized at location A.
[2025-03-24 21:15] VITALS: BP 115/68; PULSE 96; RESP 14; TEMP 36.8; O2SAT 100
--- NOTE | 2025-03-24 21:15 | ECG_ITS ---
Test Date: 2025-03-24 21:38:07 Measurements Intervals Bernard Rate: 85 P: 40 PA: 154 QRS: -21 QRSD: 75 T: 6 QT: 368 QTc: 440 Interpretive Statements SINUS RHYTHM LOW QRS VOLTAGE IN PRECORDIAL LEADS [QRS DEFLECTION < 1.0 mV IN CHEST LEADS] No previous ECG available for comparison Electronically Signed On 03-26-2025 18:24:10 CDT by Loc Moore M.D.
--- OUTSIDE RECORDS SUMMARY | 2025-03-24 21:15 | XMS_ITS ---
Author Organization [facility] ghada Address [address] [place] [address] Care Team Providers Care Filter Cleaner Name Role Phone Chuy Navarrete Primary Care Provider REASON FOR VISIT back pain Encounters Encounter Location Date Provider Diagnosis [facility] [address] [facility] [facility] [address] [place] [address] 11/10/2024 Chuy Navarrete Plan Of Treatment No Information Progress Notes * Joya PUGHDOB:[birth year] (74 yo F)Acc No.[id number]:11/10/2024 New Patient Patient: Joya GARCIA Provider: Lolis NAVARRETE MD :1950 A ge:74 Y S ex:Female Date:11/10/2024 Address:[address] [place] [address] Subjective: * Chief Complaints: * 1 . Back pain. * Medical History: Objective: * Vitals: Assessment: Plan: * Treatment: * Billing Information: * Visit Code: * Procedure Codes: * Electronic signature of Abiodun Navarrete MD on 03/24/2025 at 09:15 PM CDT Sign off status: Pending * Provider: Lolis NAVARRETE MD Date: 11/10/2024 Generated for Luis Daniel roth/Ayush/eTkaliesmitting on: 0 03/24/2025 09:15 PM CDT
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
--- OUTSIDE RECORDS SUMMARY | 2025-03-24 21:15 | XMS_ITS | Encounter Summary ---
Author Organization [facility] Address [address] [place] [address] Phone Care Team Providers Care Computer Operator Name Role Phone Jimmy Mcdaniel MD Primary Care Provider [phone] Marce An MD Primary Care Provider [phone] Janet Martinez NP Primary Care Provider [phone] Axel Levy MD Unavailable Encounter Details Date Type Department Care Team (Latest Contact Info) Description 11/17/2017 Orders Only [facility] CONVERSION Scanning, Provider Social History Tobacco Use Types Packs/Day Years Used Date Smoking Tobacco: Never Comments Unknown Sex and Gender Information Value Date Recorded Sex Assigned at Not on file Legal Sex Female 2:10 AM FICTION WRITER Gender Identity Not on file Sexual Orientation Not on file documented as of this encounter Plan of Treatment Not on file documented as of this encounter Procedures Procedure Name Priority Date/Time Associated Diagnosis Comments VASCULAR LABORATORY REPORT 11/17/2017 3:29 PM CDT documented in this encounter Results * VASCULAR LABORATORY REPORT (11/17/2017 3:29 PM CDT) Anatomical Region Laterality Modality Ultrasound us Provider Scanning CV VASCULAR PROCEDURES Final R esult documented in this encounter Visit Diagnoses Not on filedocumented in this encounter Additional Health Concerns Infection Onset Date Last Indicated Resolved Time COVID: Suspected 09/03/2022 09/03/2022 09/03/2022 10:52 AM FICTION WRITER documented as of this encounter Care Teams Computer Operator Relationship Specialty Start Date End Date Jimmy Mcdaniel MD PCP - General Internal Medicine 11/13/20 12/10/21 Marce An MD PCP - General 12/11/21 06/23/23 Janet Martinez NP [address] [id number] PCP - General Family Medicine 06/24/23 Axel Levy MD [address] [address] Referring Physician Cardiology 06/24/23 documented as of this encounter
--- OUTSIDE RECORDS SUMMARY | 2025-03-24 21:15 | XMS_ITS | Encounter Summary ---
Author Organization [facility] Healthcare Address [address] [place] [address] Care Team Providers Care Field Scout Name Role Phone Janet Martinez NP Primary Care Provider [phone] Axel Levy MD Unavailable [phone] Reason for Visit * Auth/Cert (Routine) Specialty Diagnoses / Procedures Referred By Rody t Referred To Contact Diagnoses Personal history of colonic polyps Encounter for screening colonoscopy Personal history of colonic polyps [Z86.010] Encounter for screening colonoscopy [Z12.11] Procedures ID COLONOSCOPY FLX DX W/COLLJ SPEC WHEN PFRMD COLONOSCOPY Referral ID Status Reason Start Date Expiration Date Visits Re quested Visits Authorized [id number] 1 1 Encounter Details Date Type Department Care Team (Late st Contact Info) Description 01/12/2025 Hospital Encounter [facility] [address] [place] [address] Orville Hernández MD [address] [place] [address] [address] SETH[address] [place] [id number] Social History Tobacco Use Types Packs/Day Years [...] on file Legal Sex Female 2:10 AM GUEST EXPERIENCE CAPTAIN Gender Identity Not on file Sexual Orientation Not on file documented as of this encounter Plan of Treatment Not on file documented as of this encounter Visit Diagnoses Diagnosis Medicare annual wellness visit, subsequent documented in this encounter Admitting Diagnoses Diagnosis Personal history of colonic polyps Encounter for screening colonoscopy Medicare annual wellness visit, subsequent documented in this encounter Care Teams Field Scout Relationship Specialty Start Date End Date Janet Martinez NP [address] [facility] [address] [place] [address] PCP - General Family Medicine 06/24/23 Axel Levy MD [facility] [address] [place] [address] Referring Physician Cardiology 06/24/23 documented as of this encounter
--- OUTSIDE RECORDS SUMMARY | 2025-03-24 21:15 | XMS_ITS | Clinical Summary ---
Author Organization [facility] Address [address] [place] [address] Care Team Providers Care Private Wealth Advisor Name Role Phone Russell Fields MD Unavailable Fransisco Borjas MD Unavailable Amy Baez DATA LEAD Unavailable [phone] Janet Martinez DATA LEAD Primary Care Provider [phone] Allergies Active Allergy Reactions Criticality Noted Date Comments Statins Myalgias Medium 12/12/2020 Medications * This document contains information received from the source organization and may not represent a complete record from that organization. clobetasol 0.05 % ointmentIndication s:pt not using at this time Apply topically 2 (two) times daily as needed. Indications: pt not using at this time Apply sparingly Active METAMUCIL FIBER OR Take by mouth daily. Active vitamin C (ASCORBIC ACID) 500 MG Chew Tab chewable tablet Acti ve Cholecalciferol 250 MCG (34807 UT) Cap daily. Active Apoaequorin (PREVAGEN) 10 MG Cap Take by mouth daily. Active red yeast rice extract 600 MG Cap Take 500 mg by mouth daily. Active ezetimibe (ZETIA) 10 MG tabletIndications: Hyperlipidemia, unspecified hyperlipidemia type TAKE 1 TABLET BY MOUTH EVERY DAY 90 tablet 1 3 Active levothyroxine (SYNTHROID) 50 MCG tabletIndications: Hypothyroidism, unspecified type TAKE 1 TABLET BY MOUTH EVERY DAY 90 tablet 1 3 Active Telmisartan 80 MG TabIndications:Hyp ertension, unspecified type TAKE 1 TABLET BY MOUTH EVERY DAY 90 tablet 1 3 Active hydrOXYzine (ATARAX) 25 MG tablet TAKE 1 TABLET BY MOUTH THREE TIMES A DAY NEEDED FOR ITCHING OR ANXIETY *NOT COVERED* 4 Active Active Problems Problem Noted Date Diagnosed Date Fall, subsequent encounter 01/02/2022 Hepatitis C 09/04/2021 Change in bowel habit 02/09/2021 Overview (02/09/2021): Added automatically from request for surgery [id number] Fatty stool (HHS/HCC) 02/09/2021 Overview (02/09/2021): Added automatically from request for surgery [id number] History of colon polyps 02/09/2021 Overview (02/09/2021): Added automatically from request for surgery [id number] Hyperlipidemia, unspecified hyperlipidemia type 12/12/2020 Hypertension, unspecified type 12/12/2020 Lumbar degenerative disc disease 12/12/2020 Hypothyroidism, unspecified type 12/12/2020 Abnormal stools 12/12/2020 Rash and nonspecific skin eruption 12/12/2020 Incontinence of feces, unspecified fecal inconti nence type 12/12/2020 Immunizations Immunization Administration Dates Next Due Fluzone High Dose - >Age 65 (Prefilled Syringe) 05/29/2022,06/13/2021,06/09/2019,2013 Influenza Adult (Generic) 06/09/2019,06/15/2014 MODERNA COVID-19 (12+) MRNA, LNP-S, PF, 100 MCG/ 0.5 ML DOSE 06/29/2021,11/21/2020,10/12/2020 Shingrix 03/05/2022,01/02/2022 Tdap (Generic) 11/29/2019 Family History Medical History Relation Comments Lung Cancer Mother Hypertension Sister Stroke Sister Relation Status Comments Mother Sister Social History Tobacco Use Types Packs/Day Years Used Date Smoking Tobacco: Never Smokeless Tobacco: Never Tobacco Cessation:Counseling Given: No Alcohol Use Standard Drinks/Week Comments Yes 40.3 (1 standard drink = 0.6 oz pure alcohol) AUDIT-C Answer Date Recorded Q1: How often do you have a drink containing alcohol? 4 or more times a week 10/08/2022 Q2: How many drinks containi ng alcohol do you have on a typical day when you are drinking? Patient declined Q3: How often do you have si x or more drinks on one occasion? Never 10/08/2022 PHQ-2 Answer Date Recorded Patient Health Questionnaire-2 Score 0 05/20/2023 Comments No Sex and Gender Information Value Date Recorded Sex Assigned at Not on file Legal Sex Female 8:56 AM CDT Gender Identity Not on file Sexual Orientation Not on file Last Filed Vital Signs Vital Sign Reading Time Taken Comments Blood Pressure 136/80 01/08/2024 11:03 AM CDT Pulse 72 01/08/2024 11:03 AM CDT Temperature 36.9 C (98.4 F) 05/20/2023 11:25 AM CDT Respiratory Rate 18 05/20/2023 11:25 AM CDT Oxygen Saturation 99% 05/20/2023 11:25 AM CDT Inhaled Oxygen Concentration - - Weight 69.4 kg (153 lb) 01/08/2024 11:03 AM CDT Height 160 cm (5' 3) 01/08/2024 11:03 AM CDT Body Mass Index 27.1 01/08/2024 11:03 AM CDT Plan of Treatment Health Maintenance Due Date Last Done Comments Pneumococcal Vaccine: 50+ Years (1 of 1 - PCV) 1998 RSV Immunization or 60+ Years (1 - 1-dose 75+ series) 2023 Annual Medicare Wellness Visit 10/09/2023 10/08/2022 COVID-19 Vaccine (4 2023-2 5 season) 2024 06/29/2021, 11/21/2020, 10/12/2020 PHQ-2 (Physician [place]) 09/01/2024 05/20/2023 DTaP, Tdap and Td Vaccines ( 2 - Td or Tdap) 11/28/2029 11/29/2019 Colorectal Cancer Screening Colonoscopy (10 Years) Discontinued 02/21/2021, 12/04/2016, 12/04/2016 Hepatitis C Completed 09/04/2021, 07/13/2021, 07/03/2021 Dexa Scan (General) Completed 01/16/2022 Zoster Vaccines Completed 03/05/2022, 01/02/2022 Meningococcal B Vaccine Aged Out No l onger eligible based on patient's age to complete this topic Meningococcal Vaccine Aged Out No [place] eligible based on patient's age to complete this topic RSV Immunizations Under 20 Months Aged Out No longer eligible based on patient's age to complete this topic Medical Devices Implanted Type Area Patrol Officer Device Identifier Shelf Expiration Date Model / Serial / Lot Iol Naeem [id number]/31/20 17 Implanted:Qty: 1 on 05/01/2017 by Russell Fields MD Lens Right: Eye NAEEM - SURGICAL DIV [id number] / [id number] / Iol Naeem [id number]/28/20 17 Implanted:Qty: 1 on 05/29/2017 by Russell Fields MD Lens Left: Eye NAEEM - SURGICAL DIV [id number] / [id number] / Screw Screw Right: Toe Procedures Procedure Name Priority Date/Time Associated Diagnosis Comments BONE DENSITY/DEXA Routine 01/16/2022 12: 41 PM CDT Alcohol use Screening for osteoporosis Postmenopausal COLONOSCOPY GENERIC (SCAN ORDER) 12/04/2016 from Last 3 Months or Most Recently Relevant to Health Maintenance Results * BONE DENSITY/DEXA (01/16/2022 12:41 PM CDT) Anatomical Region Laterality Modality Bone Bone Density 01/16/2022 12:4 4 PM CDT Narrative 01/16/2022 12:46 PM CDT IMAGING STUDIES: BONE DENSITY/DEXA DATE: 01/16/2022 12:30 PM CLINICAL HISTORY: 71-year-old female with menopause at age 43. No calcium therapy.. FINDINGS: LUMBAR SPINE L2-L4: BMD: 1.214 g/sq cm T-SCORE: 1.2 WHO CLASSIFICATION: Normal young adult range FRACTURE RISK: Negligible LEFT FEMORAL NECK: BMD: 0.700 T-SCORE: -1.3 WHO CLASSIFICATION: Mild osteopenia FRACTURE RISK: Very low Recommendation. Possible instigation of calcium replacement therapy with repeat imaging in 2 years. I would rely in the left femoral neck findings. Lumbar findings are elevated due to degenerative change and scoliosis Ordered By: MARCE AN Interpreted By: Kingsley Thompson, 01/16/2022 12:44 PM Procedure Note Trav Thompson MD - 01/16/2022 IMAGING STUDIES: BONE DENSITY/DEXA DATE: 01/16/2022 12:30 PM CLINICAL HISTORY: 71-year-old female with menopause at age 43.No calcium therapy.. FINDINGS: LUMBAR SPINE L2-L4: BMD: 1.214 g/sq cm T-SCORE: 1.2 WHO CLASSIFICATION: Normal young adult range FRACTURE RISK: Negligible LEFT FEMORAL NECK: BMD: 0.700 T-SCORE: -1.3 WHO CLASSIFICATION: Mild osteopenia FRACTURE RISK: Very low Recommendation. Possible instigation of calcium replacement therapy withrepeat imaging in 2 years. I would rely in the left femoral neck findings. Lumbar findings areelevated due to degenerative change and scoliosis Ordered By: MARCE AN Interpreted By: Kingsley Thompson, 01/16/2022 12:44 PM us Marce An MANAGER RETAIL DEXA Final Res ult * COLONOSCOPY GENERIC (12/04/2016) 12/04/2016 Narrative 12/04/2016 Ordered by an unspecified provider. us Documents Scanned SCANNING Final Result from Last 3 Months or Most Recently Relevant to Health Maintenance Insurance MEDICARE [employer] Care Teams Private Wealth Advisor Relationship Specialty Start Date End Date Janet Martinez FNP [address] [address] PCP - General Nurse Practitioner Family 07/08/23 Russell Fields MD Referring Physician OPHTHALMOLOGY 02/06/21 Fransisco Borjas MD [address] [place] [address] DERMATOLOGY 02/06/21 Amy Baez FNP [address] [address] Nurse Practitioner CARDIOLOGY 10/08/22
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
--- OUTSIDE RECORDS SUMMARY | 2025-03-24 21:15 | XMS_ITS | Clinical Summary ---
Author Organization [facility] Address [address] [place] [address] Care Team Providers Care Loading Unit Operator Name Role Phone Florencio Wilson MD Primary Care Provider Unavailabl e Source Comments [facility],non-owned Affiliates and Associated Physician Practices is amultiple site organization consisting of ambulatory clinics and hospital sitesin [place], [place], [place] and [place]. This disclosure is being madepursuant to the Care Everywhere program and may not contain all information available regarding this patient. Last updated 18.[facility] Allergies No known active allergies Medications * Be aware that medications may not be up to date on this document. Alwaysverify current medications with the patient. ezetimibe (ZETIA) 10 MG tablet Take 10 mg by mouth once daily Active telmisartan (MICARDIS) 40 MG tablet Take 80 mg by mouth once daily Active Active Problems Problem Noted Date Diagnosed Date Laceration of right upper extremity 12/07/2019 Immunizations Immunization Administration Dates Next Due INFLUENZA VACCINE, HIGH-DOSE , QUADR. (FLUZONE HIGH-DOSE QUADRIVALENT; 65Y+), 0.7 ML (HD-IIV4) 06/09/2019 TDAP (7yrs+) 11/29/2019 Social History Tobacco Use Types Packs/Day Years Used Date Smoking Tobacco: Never Smokeless Tobacco: Never Alcohol Use Standard Drinks/Week Comments Yes 20 (1 standard drink = 0.6 oz pu re alcohol) Comments No Sex and Gender Information Value Date Recorded Sex Assigned at Not on file Legal Sex Female 11:36 AM CDT Gender Identity Not on file Sexual Orientation Not on file Last Filed Vital Signs Vital Sign Reading Time Taken Comments Blood Pressure 145/77 12/14/2019 2:05 PM CDT Pulse 106 12/07/2019 1:53 PM CDT Temperature 36.2 C (97.2 F) 12/14/2019 2:05 PM CDT Respiratory Rate 16 11/29/2019 6:00 AM CDT Oxygen Saturation 98% 12/07/2019 1:53 PM CDT Inhaled Oxygen Concentration - - Weight 76.7 kg (169 lb) 12/14/2019 2:05 PM CDT Height 160 cm (5' 3) 12/14/2019 2:05 PM CDT Body Mass Index 29.94 12/14/2019 2:05 PM CDT Plan of Treatment Health Maintenance Due Date Last Done Comments BONE DENSITY TESTING 1950 HEPATITIS C SCREENING 04/12/1968 PNEUMOCOCCAL VACCINE 50+ (1 of 1 - PCV) 1998 ZOSTER VACCINE (1 of 2) 1998 Respiratory Syncytial Virus (RSV) Vaccine Pt: or over 60 yrs (1 - 1-dose 75+ series) 2023 COVID-19 VACCINE (1 - 2023-2 5 season) 2024 DEPRESSION SCREENING 09/01/2024 INFLUENZA VACCINE (#1) 2025 06/09/2019 DTAP/TDAP/TD VACCINES (2 - T d or Tdap) 11/28/2029 11/29/2019 HEPATITIS B VACCINE Aged Out No longe r eligible based on patient's age to complete this topic HIB VACCINE Aged Out No longer eligi ble based on patient's age to complete this topic HPV VACCINE Aged Out No longer eligi ble based on patient's age to complete this topic MENINGOCOCCAL (Group B) VACC INE SHARED DECISION-MAKING Aged Out No longer eligibl e based on patient's age to complete this topic MENINGOCOCCAL GROUPS A/C/Y/W VACCINE Aged Out No longer eligible b ased on patient's age to complete this topic Insurance [employer] [place] [address] [employer] Member Subscriber Plan / Payer (Ef fective 2014-) Name:Joya Pugh Relation to Subscriber:Self Name:Joya Pugh Payer ID:Not on file Group ID:Not on file Type:[employer] Address: [facility] [address] [place], [place] MEDICARE Care Teams Loading Unit Operator Relationship Specialty Start Date End Date Florencio Wilson MD PCP - General Internal Medicine 11/26/19
--- OUTSIDE RECORDS SUMMARY | 2025-03-24 21:15 | XMS_ITS | Encounter Summary ---
Author Organization [facility] Address [facility] [place] [address] Care Team Providers Care Seasoning Mixer Name Role Phone BetoJulia martinezheather Oro NP Primary Care Provider [phone] Russell Fields MD Unavailable [phone] Fransisco Borjas MD Unavailable Amy Baez SALON PROFESSIONAL Unavailable [phone] Janet Martinez SALON PROFESSIONAL Primary Care Provider [phone] Encounter Details Date Type Department Care Team (Late st Contact Info) Description 02/09/2021 Prep for Procedure [facility] [address] [place], [place] [id number] Jones Da Silva MD [address] [address] Social History Tobacco Use Types Packs/Day Years Used Date Smoking Tobacco: Never Smokeless Tobacco: Never Alcohol Use Standard Drinks/Week Comments Yes 40.3 (1 standard drink = 0.6 oz pure alcohol) AUDIT-C Answer Date Recorded Q1: How often do you have a drink containing alc ohol? Monthly or less 12/12/2020 Q2: How many drinks containi ng alcohol do you have on a typical day when you are drinking? 1 or 2 12/12/2020 Q3: How often do you have si x or more drinks on one occasion? Weekly 12/12/2020 PHQ-2 Answer Date Recorded PHQ-2 Score - If the patient scores above 3, please move on to questions 3-9 2 02/06/2021 Comments No Sex and Gender Information Value Date Recorded Sex Assigned at Not on file Legal Sex Female 8:56 AM CDT Gender Identity Not on file Sexual Orientation Not on file COVID-19 Exposure Response Date Recorded In the last month, have you been in contact with someone who was confirmed or suspected to have Coronavirus / COVID-19? No / Unsure 02/08/2021 12:57 PM CDT documented as of this encounter Plan of Treatment Not on file documented as of this encounter Visit Diagnoses Diagnosis Preop testing- Primary Preoperative examination, unspecified documented in this encounter Additional Health Concerns Assessment Noted Time PHQ-9 Depression Total Score: 6 02/07/20 10:58 AM CDT documented as of this encounter Care Teams Seasoning Mixer Relationship Specialty Start Date End Date Marce An NP [address] [place] [address] PCP - General NURSE PRACTITIONER 12/01/20 07/07/23 Janet Martinez FNP [address] [address] PCP - General Nurse Practitioner [facility] 07/08/23 Russell Fields MD [address] [place] [address] Referring Physician OPHTHALMOLOGY 02/06/21 [place] [address] [place] [address] DERMATOLOGY 02/06/21 Amy Baez FNP [address] [address] Nurse Practitioner CARDIOLOGY 10/08/22 documented as of this encounter
--- OUTSIDE RECORDS SUMMARY | 2025-03-24 21:15 | XMS_ITS | Continuity of Care Document ---
Author Name [facility] Organization [facility] Care Team Providers Care Diesel Power Shovel Operator Name Role Phone [facility] Unavailable Unavailable Social History Combined list of available smoking, tobacco, and other social history from Department of Defense and Veterans Affairs facilities. Social History Type Response Date Comment Sourc e This section is an empty social history section. [facility]
--- OUTSIDE RECORDS SUMMARY | 2025-03-24 21:15 | XMS_ITS | Clinical Summary ---
Author Organization [facility] Care Team Providers Care Vehicle Safety Inspector Name Role Phone Unavailable Primary Care Provider Unavailabl e Social History Tobacco Use Types Packs/Day Years Used Date Smoking Tobacco: Never Assessed Comments Unknown Sex and Gender Information Value Date Recorded Sex Assigned at Not on file Legal Sex Female 1:07 PM COMMERCIAL ACCOUNTANT Gender Identity Not on file Sexual Orientation Not on file Plan of Treatment Health Maintenance Due Date Last Done Comments Hepatitis C Virus (HCV) Screening 1950 TdaP Immunization 1950 Pneumococcal Immunization (5 0+ years) (1 of 1 - PCV) 1998 Zoster Immunization (1 of 2) 1998 Respiratory Syncytial Virus (RSV) Immunization (Adult) (1 - 1-dose 75+ series) 2023 SARS-COV-2 Immunization (1 - 2023- season) 2024 Influenza Immunization (#1) 2025 10/0 05/2019, 06/15/2014 Hepatitis B Immunization Aged Out No longer eligible based on patient's age to complete this topic Human Papillomavirus (HPV) Immunization Aged Out No longer eligible b ased on patient's age to complete this topic Meningococcal Immunization (ACWY) Aged Out No longer eligible b ased on patient's age to complete this topic Rotavirus Immunization Aged Out No lo nger eligible based on patient's age to complete this topic
--- OUTSIDE RECORDS SUMMARY | 2025-03-24 21:15 | XMS_ITS | Patient Health Record ---
Author Organization [facility] Address [address] [place] [address] Care Team Providers Care Circular Ripsaw Operator Name Role Phone Chuy Nevarez Primary Care Provider Reason For Referral No Information Medications Medication SIG (Take, Route, Frequency, Duration) Notes Start Date End Date Status Ezetimibe *Pick strength-form from Medispan for eRX* Active Telmisartan *Pick strength-form from Medispan for eRX* Active Vitamin D3 *Pick strength-form from Medispan for eRX* Active Red Yeast Rice *Pick strength-form from Medispan for eRX* Active Ciprofloxacin 3 days for UTI *Pick strength-form from Medispan for eRX* Active One Daily *Pick strength-form from Medispan for eRX* Active Zetia 10mg 1 QD *Pick strength-form from Medispan for eRX* Not-Taking Micardis 80mg 1 QD *Pick strength-form from Medispan for eRX* Not-Taking Problems Problem Type SNOMED Code ICD Code Onset Dates Problem Status W/U Status Risk Notes Problem Solitary sacroiliitis (813573883) Sacroiliitis, not elsewhere classified (720.2) Active confirmed Problem Solitary sacroiliitis (530728030) Sacroiliitis, not elsewhere classified (M46.1) Active confirmed Problem Other specified inflammatory spondylopathies, 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) Active confirmed Problem Trochanteric bursitis of right hip (823202575463456 ) Trochanteric bursitis, right hip (M70.61) Active confirmed Problem Lumbosacral spondylosis without myelopathy (04038655) Lumbar facet arthrop (721.3) Active confirmed Encounters Encounter Location Date Provider Diagnosis [facility] [address] [place] [address] 10/18/2024 Chuy Nevarez Plan Of Treatment Pending Test Test Name Order Date MAJOR JOINT INJECTION WITH ULTRASOUND MAJOR JOINT INJECTION WITH ULTRASOUND Insurance Providers Payer Name Payer Address Payer Phone Subscriber Number Group Number Insured Name Patient Relationship to Insured Coverage Start Date Coverage End Date Medicare [address] [address] [place] [address] [id number] Joya Antonio Self - patient is the insured Physician [employer] [address] [place] [id number] Joya Antonio Self - patient is the insured Medical (General) History Medical History History ICD Code HTN Rheumatoid arthritis Surgical History Surgery Date(Month/Year) tonsillectomy and adenoidectomy 1967 breast biopsy tubal ligation skin graft 1996 plantar neuroma 1992 bunionectomy 2009 carpal tunnel release 1999 Left hand & back biopsies 2007 Left middle finger cyst removal 2009 Cystocele/rectocele 2014
--- OUTSIDE RECORDS SUMMARY | 2025-03-24 21:16 | XMS_ITS ---
Author Organization [facility] Address [address] [place] [address] Care Team Providers Care Rv Technician Name Role Phone Chuy Navarrete Primary Care Provider [phone] REASON FOR VISIT back pain Encounters Encounter Location Date Provider Diagnosis [facility] [id number] [facility] [address] [place] [address] 12/15/2024 Chuy Navarrete Plan Of Treatment No Information Progress Notes * Joya PUGHDOB:[birth year] (74 yo F)Acc No.[id number]:12/15/2024 New Patient Patient: Joya GARCIA Provider: Lolis NAVARRETE MD :1950 A ge:74 Y S ex:Female Date:12/15/2024 Address:[address] [place] [address] Subjective: * Chief Complaints: * 1 . Back pain. * Medical History: Objective: * Vitals: Assessment: Plan: * Treatment: * Billing Information: * Visit Code: * Procedure Codes: * Electronic signature of Abiodun Navarrete MD on 03/24/2025 at 09:15 PM CDT Sign off status: Pending * Provider: Lolis NAVARRETE MD Date: 12/15/2024 Generated for Luis Daniel roth/Ayush/eTjoelitting on: 0 03/24/2025 09:15 PM CDT
--- OUTSIDE RECORDS SUMMARY | 2025-03-24 21:16 | XMS_ITS | Continuity of Care Document ---
Author Organization [facility] Address [address] [place] [address] Phone Care Team Providers Care Conductor And Engineer Name Role Phone Hargrove OD, Man Unavailable Unavailable Advance Directives Directive Yes / No Effective Date File Name No Information Encounters Encounter Description Practice Location Reason(s) For Visit Diagnoses Date Provider Providers Copied on Encounter [facility], [address], [place], [place], [id number], [place] tel:[phone] [facility] [place] No Information Juvenal-2 3[address] 6 Hargrove OD Man. [address] [place] , [address], [place], [address], [place]. tel:[phone] Family History Family Member Type Diagnosis Age At Onset No Information Payers Payer name Insurance type Covered constitution party ID Authoriza tion(s) No Information Social History Type Description Quantity Date Captured Comments Sex Female Smoking Status No Information Chief Complaint And Reason For Visit No Information Reason For Referral Reason For Referral No Information History Of Present Illness Encounter Date Complaint History Of Prese nt Illness No Information Functional Status Date Functional Assessmen t No Information Instructions Date Instruction Additional Infor mation No Information Assessments Type Assessment Date No Information Patient Care Teams Name Effective Dates (start - stop) Status Members No Information
[2025-03-24 21:45] LABS: Hematocrit 32.7 % (37.0-47.0); Hemoglobin 10.6 g/dL (12.0-15.0); Immature Granulocyte Percent A 0.4 % (0-0.5); Lymphocytes Absolute Auto 1.08 K/mm3 (0.9-3.2); Mean Corpuscular HGB Conc 32.4 g/dl (32-36); Mean Corpuscular Hemoglobin 29.4 pg (26-34); Mean Corpuscular Volume 90.8 fl (80-100); Nucleated Red Blood Cells Absolute Auto 0.000 K/mm3 (0.0-0.012); Nucleated Red Blood Cells Perc 0.0 % (0.0-0.2); Platelet Count Result 308 k/mm3 (150-375); Red Blood Count 3.60 M/mm3 (4.2-5.4); White Blood Count 9.4 K/mm3 (4.5-10.0)
--- NOTE | 2025-03-24 21:53 | ED.AMS ---
HPI - Altered Mental Status General Chief Complaint: Altered Mental Status Stated Complaint: Fall, confused-found on floor Time Seen by Provider: 03/24/25 21:41 Source: patient and family (Son, [id number]) History of Present Illness HPI narrative: Patient presents after a fall and with confusion. Her family note that she will intermittently experience confusion and has steadily been on the decline in general over the past few years. They note that she has a history of urinary tract infection and during that she was noted to be hallucinating. They say she is hallucinating people again as well as confabulating stories, getting concerned about her pets missing even though they are in the house. Patient lives alone. The last time they spoke with her was on Friday. They found her today lying naked on the floor. They note her house is a mess and they were concerned about her safety. They noted bruising around her face but this appears old. Patient states she it hurts all over. There is a history of alcohol use. Patient states she drinks glass of wine nightly although has not had a drink since Friday. Family note that she abuses alcohol. They state that they follow her on home life 360 and have intermittently noticed that she will be driving in circles, unable to navigate. She showed up to their daughter's (her grandchild's) graduation democrat on the wrong date even though she had the invitation in her hand. Related Data Home Medications ?Medication ?Instructions ?Recorded ?Confirmed ?Last Taken ?Type ezetimibe 10 mg tablet 10 mg PO DAILY 04/05/23 03/24/25 04/04/23 09:00 History levothyroxine 50 mcg tablet 50 mcg PO DAILY 04/05/23 03/24/25 04/04/23 08:00 History telmisartan 80 mg tablet 80 mg PO DAILY 04/05/23 03/24/25 04/04/23 09:00 History Allergies Allergy/AdvReac Type Severity Reaction Status Date / Time No Known Allergies Allergy Unknown Verified 03/24/25 21:14 [facility] Past Medical History Medical History Back pain Hyperlipidemia History of hypothyroidism History of hypertension Surgical History Surgical History (Updated 04/05/23 @ 18:47 by Emilia Rojas, JIG AND FIXTURE MAKER) H/O breast biopsy H/O bladder repair surgery H/O tubal ligation H/O cataract extraction H/O carpal tunnel repair Left H/O skin graft History of bunionectomy History of tonsillectomy Family History Family History Sibling Thyroid disease Mother Lung cancer Social History Social History Social History: Previously stated She had 2 drinks of bourbon daily and sometimes has a glass of white wine when she cooks; now states that she has a glass of wine each evening. She is a lifelong nonsmoker. She is . She has a son and daughter. 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 Code status full code Smoking status: Never smoker Alcohol intake: current Drinks per week: 14 Alcohol use details: daily Substance use: never Lack of Transportation: No Lack of Food: Never True Current Housing: I Have Housing Concerned About Future Housing: No Difficulty Paying Gas/Electric Bills: No Difficulty Paying for Meds: No Currently Unemployed: No Education: High School Diploma/GED Difficulty w/ Childcare or Family Care: No Spiritual care concerns: No Exam Narrative: GENERAL: Well-appearing, well-nourished, and in no acute distress. HEAD: Normocephalic, atraumatic. EYES: Left eye injected, right eye normal. Non icteric bilaterally ENT: Nares clear, no rhinorrhea or epistaxis. Gross auditory acuity intact. Tacky mucous membranes. NECK: Supple. No meningismus. CHEST: Speaking in full sentences. No respiratory distress. Lungs clear to auscultation bilaterally without wheezes or crackles HEART: Regular rate and rhythm. . ABDOMEN: Soft, nondistended. No rigidity or guarding. Not peritoneal. No tenderness to palpation throughout. SKIN: Warm, dry. Well-healing ecchymosis around left eye and left yarsani. NEURO: No focal deficits. Alert. Answering questions although not always correctly per family. Following commands. Normal speech without aphasia or dysarthria. Tongue protrudes midline without deviation or fasciculation PSYCH: Normal mood and affect. Course Vital Signs Vital signs: Vital Signs Temperature 98.3 F 03/24/25 21:15 Pulse Rate 96 03/24/25 21:15 Respiratory Rate 14 03/24/25 21:15 Blood Pressure 115/68 03/24/25 21:15 Pulse Oximetry 100 03/24/25 21:15 Oxygen Delivery Room Air 03/24/25 21:15 Temperature 98.3 F 03/24/25 21:15 Pulse Rate 77 03/24/25 22:46 Respiratory Rate 15 03/24/25 22:46 Blood Pressure 119/68 03/24/25 22:46 Pulse Oximetry 100 03/24/25 22:46 Oxygen Delivery Room Air 03/24/25 21:44 MDM - Altered Mental Status MDM Narrative Medical decision making narrative: Patient presents with confusion and fall. Patient last saw her a few days ago. Today they found her lying on the ground. Unclear how long she has been there. At baseline has intermittent confusion although this has been worsening over the past year or so. They do note that she experienced to loosen a shins when she had a urinary tract infection last time and she has been hallucinating people. Patient is confused and although she speaks clearly, the details of what she states are not in alignment with the facts. Family is concerned about her safety given her falls and confusion and they note that her house is also a mess. In the emergency department they are afebrile with vital signs within normal limits. She has a normocytic anemia. She has an JOSE. 500 cc fluid ordered. Patient chronically has an AST elevation. Today both AST and ALT are elevated. INR 1.1. Patient has a critical troponin. Aspirin ordered as is 3 hour troponin, timed. No prior for comparison. Patient has urinary tract infection. Previous urine culture in EMR grew mixed genital lonnie so unable to guide therapy. Will give dose of ceftriaxone. Current culture pending. TSH abnormal; T3/T4 ordered. 1 L IV fluids ordered. Patient CPK is elevated concerning for rhabdomyolysis. 2nd L of IV fluids are ordered. Patient will require admission. She verifies understanding. Discussed with on-call hospitalist Dr Woods who accepts admission. IV fluids at 150 mL/hr for aggressive hydration. Will be IMU given NSTEMI. Repeat troponin essentially unchanged/flat. Differential Diagnosis Differential diagnosis: Likely alcoholic intoxication, altered mental status, delirium, dementia, hypoglycemia, hyponatremia, subarachnoid hemorrhage, sepsis and other (Metabolic encephalopathy, cholangitis, infection (UTI, PNA); rhabdomyolysis; intracranial hemorrhage, facial fractures) Lab Data Attestation: I reviewed the patient's lab results. 03/24/25 21:39 03/24/25 21:39 Labs: Lab Results 03/24/25 03/24/25 03/24/25 Range/Units 21:39 22:47 23:16 WBC 9.4 (4.5-10.0) K/mm3 RBC 3.60 L (4.2-5.4) M/mm3 Hgb 10.6 L (12.0-15.0) g/dL Hct 32.7 L (37.0-47.0) % MCV 90.8 (80-100) fl MCH 29.4 (26-34) pg MCHC 32.4 (32-36) g/dl RDW 14.6 H (11.5-14.5) % Plt Count 308 (150-375) k/mm3 MPV 9.2 (7.4-10.4) fl Immature Gran % (Auto) 0.4 (0-0.5) % Neut % (Auto) 78.5 H (45.5-73.1) % Lymph % (Auto) 11.5 L (18.3-44.2) % Glacier % (Auto) 8.3 (2.6-8.5) % Eos % (Auto) 0.8 (0-4.4) % Baso % (Auto) 0.5 (0.2-1.2) % Lymph # (Auto) 1.08 (0.9-3.2) K/mm3 Glacier # (Auto) 0.8 H (0.1-0.6) K/mm3 Eos # (Auto) 0.1 (0-0.3) K/mm3 Baso # (Auto) 0.1 (0.0-0.1) K/mm3 Abs Immat Gran (auto) 0.04 H (0.00-0.031) K/mm3 Absolute Neuts (auto) 7.4 H (1.3-6.7) K/mm3 Absolute Nucleated RBC 0.000 (0.0-0.012) K/mm3 Nucleated RBC % 0.0 (0.0-0.2) % PT 14.1 (11.1-14.7) Seconds INR 1.1 APTT 24.3 (22.3-36.8) Seconds Sodium 128 L (137-145) mmol/L Potassium 4.5 (3.4-5.0) mmol/L Chloride 94 L (98-107) mmol/L Carbon Dioxide 22 (22-30) mmol/L Anion Gap 12 (4-12) mmol/L BUN 24 H D (7-17) mg/dL Creatinine 1.02 H (0.7-1.0) mg/dL Estim Creat Clear Calc 36 ml/min Estimated GFR 53 L (59 - ) Glucose 113 H (65-110) mg/dL Calcium 9.7 (8.4-10.2) mg/dL Total Bilirubin 1.4 H (0.2-1.3) mg/dL AST 250 H (14-36) U/L ALT 75 H (6-35) U/L Alkaline Phosphatase 60 (38-126) U/L Ammonia < 9 L (9-30) umol/L Total Creatine Kinase 4788 H (30-135) U/L Troponin I 0.057 H* (0.000-0.034) ng/mL Total Protein 7.4 (6.3-8.2) g/dL Albumin 4.2 (3.5-5.1) g/dL Lipase 130 (23-300) U/L TSH 6.130 H (0.465-4.680) uIU/mL Free T4 Urine Color Dark yellow (Yellow) Urine Appearance Turbid H (Clear) Urine pH 5.5 (5.0-9.0) Ur Specific Searchlight 1.019 (1.001-1.035) Urine Protein 1+ H (Negative) mg/dL Urine Glucose (UA) Negative (Negative) mg/dL Urine Ketones 1+ H (Negative) mg/dL Ur Blood (Man) Non-hemolyzed trace H (Negative) Urine Nitrate Positive H (Negative) Urine Bilirubin Negative (Negative) Urine Urobilinogen 1.0 (<2.0) mg/dL Add Ur Microanalysis Reviewed Leukocyte Esterase Rfl 3+ H (Negative) IRAIDA/UL Urine RBC 3-5 H (0-2) /hpf Urine WBC >100 H (0-3) /hpf Ur Squamous Epith Cells Occasional (Few) /hpf Urine Bacteria 1+ H /hpf Urine Casts >20 Hyaline Casts Present (None) /lpf Urine Mucus Present /lpf Salicylates < 1.0 L (2-20) mg/dL Urine Opiates Screen Negative (Negative) Urine Methadone Screen Negative (Negative) Acetaminophen < 10 L (10-30) ug/mL Ur Barbiturates Screen Negative (Negative) Ur Phencyclidine Scrn Negative (Negative) Ur Amphetamine Screen Negative (Negative) U Benzodiazepines Scrn Negative (Negative) Urine Cocaine Screen Negative (Negative) U Cannabinoids Screen Negative (Negative) Ethyl Alcohol < 10 (<10) mg/dL 03/25/25 Range/Units 01:55 WBC (4.5-10.0) K/mm3 RBC (4.2-5.4) M/mm3 Hgb (12.0-15.0) g/dL Hct (37.0-47.0) % MCV (80-100) fl MCH (26-34) pg MCHC (32-36) g/dl RDW (11.5-14.5) % Plt Count (150-375) k/mm3 MPV (7.4-10.4) fl Immature Gran % (Auto) (0-0.5) % Neut % (Auto) (45.5-73.1) % Lymph % (Auto) (18.3-44.2) % Glacier % (Auto) (2.6-8.5) % Eos % (Auto) (0-4.4) % Baso % (Auto) (0.2-1.2) % Lymph # (Auto) (0.9-3.2) K/mm3 Glacier # (Auto) (0.1-0.6) K/mm3 Eos # (Auto) (0-0.3) K/mm3 Baso # (Auto) (0.0-0.1) K/mm3 Abs Immat Gran (auto) (0.00-0.031) K/mm3 Absolute Neuts (auto) (1.3-6.7) K/mm3 Absolute Nucleated RBC (0.0-0.012) K/mm3 Nucleated RBC % (0.0-0.2) % PT (11.1-14.7) Seconds INR APTT (22.3-36.8) Seconds Sodium (137-145) mmol/L Potassium (3.4-5.0) mmol/L Chloride (98-107) mmol/L Carbon Dioxide (22-30) mmol/L Anion Gap (4-12) mmol/L BUN (7-17) mg/dL Creatinine (0.7-1.0) mg/dL Estim Creat Clear Calc ml/min Estimated GFR (59 - ) Glucose (65-110) mg/dL Calcium (8.4-10.2) mg/dL Total Bilirubin (0.2-1.3) mg/dL AST (14-36) U/L ALT (6-35) U/L Alkaline Phosphatase (38-126) U/L Ammonia (9-30) umol/L Total Creatine Kinase (30-135) U/L Troponin I Pending (0.000-0.034) ng/mL Total Protein (6.3-8.2) g/dL Albumin (3.5-5.1) g/dL Lipase (23-300) U/L TSH (0.465-4.680) uIU/mL Free T4 Pending Urine Color (Yellow) Urine Appearance (Clear) Urine pH (5.0-9.0) Ur Specific Searchlight (1.001-1.035) Urine Protein (Negative) mg/dL Urine Glucose (UA) (Negative) mg/dL Urine Ketones (Negative) mg/dL Ur Blood (Man) (Negative) Urine Nitrate (Negative) Urine Bilirubin (Negative) Urine Urobilinogen (<2.0) mg/dL Add Ur Microanalysis Leukocyte Esterase Rfl (Negative) IRAIDA/UL Urine RBC (0-2) /hpf Urine WBC (0-3) /hpf Ur Squamous Epith Cells (Few) /hpf Urine Bacteria /hpf Urine Casts Hyaline Casts (None) /lpf Urine Mucus /lpf Salicylates (2-20) mg/dL Urine Opiates Screen (Negative) Urine Methadone Screen (Negative) Acetaminophen (10-30) ug/mL Ur Barbiturates Screen (Negative) Ur Phencyclidine Scrn (Negative) Ur Amphetamine Screen (Negative) U Benzodiazepines Scrn (Negative) Urine Cocaine Screen (Negative) U Cannabinoids Screen (Negative) Ethyl Alcohol (<10) mg/dL Imaging Data Radiologist's impression: Impressions Head CT 03/24/25 22:29 IMPRESSION: 1. No acute intracranial process. 2. Age-related changes including mild diffuse volume loss and mild scattered white matter hypoattenuation consistent with chronic small vessel ischemic disease. Head/Cervical Spine/Facial Bones CT 03/24/25 22:45 IMPRESSION: 1. Left supraorbital scalp hematoma with no calvarial or maxillofacial fracture. 2. Severe cervical and upper thoracic spondylosis with no acute osseous abnormality. Chest X-Ray 03/24/25 22:55 IMPRESSION: 1. No acute cardiopulmonary disease. Chest/Abdomen/Pelvis CT 03/24/25 23:33 IMPRESSION: 1. No acute fracture or acute intrathoracic, abdominal or pelvic process. 2. Cirrhosis with portal venous hypertension. 3. Cholelithiasis. 4. Small sliding-type hiatal hernia. ECG Data EKG #1: Attestation: I personally reviewed and interpreted this ECG as follows: ECG completion date: 03/24/25 ECG completion time: 21:38 Interpretation: Normal sinus rhythm at a rate of 85 beats per minute. NH interval 154. QRS 75. QT/QTC 368/411. Good R-wave progression across the precordial leads although low voltage particularly in lateral precordial leads. T-wave inversion in 3, flat in AVF and upright in contiguous inferior lead 2. No other T-wave inversions. EKG #2: Attestation: I personally reviewed and interpreted this ECG as follows: ECG completion date: 03/25/25 ECG completion time: 01:51 Interpretation: Normal sinus rhythm at a rate of 85 beats per minute. NH interval 165. QRS 76. QT/QTC 385/460. Good R-wave progression across the precordial leads. Discharge Plan Discharge Clinical Impression: Anemia, JOSE (acute kidney injury), Transaminitis, Hematoma of scalp, Traumatic ecchymosis of face, Non-ST elevation OK (NSTEMI), UTI (urinary tract infection), Cirrhosis, Portal venous hypertension, Rhabdomyolysis, Confusion, Fall, Cholelithiasis, Hiatal hernia Patient Disposition: Still a Patient Condition: Stable Patient Language: Italian Prescriptions: No Action levothyroxine 50 mcg tablet 50 mcg PO DAILY telmisartan 80 mg tablet 80 mg PO DAILY ezetimibe 10 mg tablet 10 mg PO DAILY Follow-up/Referrals: Michelle,Janet Trejo APRN [Primary Care Provider] -
[2025-03-24 21:57] LABS: INR 1.1; Partial Thromboplastin Time 24.3 Seconds (22.3-36.8); Prothrombin Time 14.1 Seconds (11.1-14.7)
[2025-03-24 22:16] LABS: Alanine Aminotransferase 75 U/L (6-35); Albumin Level 4.2 g/dL (3.5-5.1); Alkaline Phosphatase 60 U/L (38-126); Anion Gap 12 mmol/L (4-12); Aspartate Amino Transferase 250 U/L (14-36); Bilirubin,Total 1.4 mg/dL (0.2-1.3); Blood Urea Nitrogen 24 mg/dL (7-17); Calcium 9.7 mg/dL (8.4-10.2); Carbon Dioxide 22 mmol/L (22-30); Chloride 94 mmol/L (98-107); Estimated CRCL calculation 36 ml/min; Estimated Glomerular Filt Rate 53; Glucose 113 mg/dL (65-110); Potassium 4.5 mmol/L (3.4-5.0); Sodium 128 mmol/L (137-145); Total Protein 7.4 g/dL (6.3-8.2)
--- OUTSIDE RECORDS SUMMARY | 2025-03-24 22:31 | XMS_ITS | Encounter Summary ---
Author Organization [facility] Address [address] [place] [address] Phone Care Team Providers Care Vine Fruit Farming Supervisor Name Role Phone Jimmy Mcdaniel MD Primary Care Provider Marce nA MD Primary Care Provider [phone] Janet Martinez NP Primary Care Provider [phone] Axel Levy MD Unavailable [phone] Encounter Details Date Type Department Care Team (Latest Contact Info) Description 11/17/2017 Orders Only [facility] CONVERSION Scanning, Provider Social History Tobacco Use Types Packs/Day Years Used Date Smoking Tobacco: Never Comments Unknown Sex and Gender Information Value Date Recorded Sex Assigned at Not on file Legal Sex Female 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
--- OUTSIDE RECORDS SUMMARY | 2025-03-24 22:31 | XMS_ITS | Encounter Summary ---
Author Organization [facility] Address [facility] [place] [address] Care Team Providers Care Water And Fire Technician Name Role Phone BetoJulia martinezheather Oro NP Primary Care Provider [phone] Russell Fields MD Unavailable [phone] Fransisco Borjas MD Unavailable Amy Baez FLUID PUMP OPERATOR Unavailable [phone] Janet Martinez FLUID PUMP OPERATOR Primary Care Provider [phone] Encounter Details Date Type Department Care Team (Late st Contact Info) Description 02/09/2021 Prep for Procedure [facility] [address] [place], [place] [id number] Jones Da Silva MD [address] [address] Social History Tobacco Use Types Packs/Day Years [...] documented as of this encounter Care Teams Water And Fire Technician Relationship Specialty Start Date End Date Marce An NP [address] [place] [address] PCP - General NURSE PRACTITIONER 12/01/20 07/07/23 Janet Martinez FNP [address] [address] PCP - General Nurse Practitioner [facility] 07/08/23 Russell Fields MD [address] [place] [address] Referring Physician OPHTHALMOLOGY 02/06/21 [place] [address] [place] [address] DERMATOLOGY 02/06/21 Amy Baez FNP [address] [address] Nurse Practitioner CARDIOLOGY 10/08/22 documented as of this encounter
--- OUTSIDE RECORDS SUMMARY | 2025-03-24 22:31 | XMS_ITS | Encounter Summary ---
Author Organization [facility] Address [address] [place] [address] Care Team Providers Care Veterinarian Helper Name Role Phone Janet Martinez NP Primary Care Provider [phone] Axel Levy MD Unavailable [phone] Reason for Visit * Auth/Cert (Routine) Specialty Diagnoses / Procedures Referred By Rody t Referred To Contact Diagnoses Personal history of colonic polyps Encounter for screening colonoscopy Personal history of colonic polyps [Z86.010] Encounter for screening colonoscopy [Z12.11] Procedures CA COLONOSCOPY FLX DX W/COLLJ SPEC WHEN PFRMD COLONOSCOPY Referral ID Status Reason Start Date Expiration Date Visits Re quested Visits Authorized [id number] 1 1 Encounter Details Date Type Department Care Team (Late st Contact Info) Description 01/12/2025 Hospital Encounter [facility] [address] [place] [address] Orville Hernández MD [address] [place] [address] DR SETHI [address] [place] [address] Social History Tobacco Use Types Packs/Day Years [...] on file Legal 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 Gender Identity Not on file Sexual Orientation Not on file documented as of this encounter Plan of Treatment Not on file documented as of this encounter Visit Diagnoses Diagnosis Medicare annual wellness visit, subsequent documented in this encounter Admitting Diagnoses Diagnosis Personal history of colonic polyps Encounter for screening colonoscopy Medicare annual wellness visit, subsequent documented in this encounter Care Teams Veterinarian Helper Relationship Specialty Start Date End Date Janet Martinez NP [address] [facility] [address] [place] [address] PCP - General Family Medicine 06/24/23 Axel Levy MD [facility] [address] [place] [address] Referring Physician Cardiology 06/24/23 documented as of this encounter
--- OUTSIDE RECORDS SUMMARY | 2025-03-24 22:31 | XMS_ITS | Clinical Summary ---
Author Organization [facility] [place] Address [address] [place] [address] Care Team Providers Care Glove Printer Name Role Phone Russell Fields MD Unavailable [phone] Fransisco Borjas MD Unavailable Amy Baez PACKAGING DESIGN ENGINEER Unavailable [phone] Janet Martinez PACKAGING DESIGN ENGINEER Primary Care Provider [phone] Allergies Active Allergy Reactions Criticality Noted Date [...] chewable tablet Acti ve Cholecalciferol 250 MCG (38878 UT) Cap daily. Active Apoaequorin (PREVAGEN) 10 [...] (02/09/2021): Added automatically from request for surgery [id number] Fatty stool (HHS/HCC) 02/09/2021 Overview (02/09/2021): Added automatically from request for surgery [id number] History of colon polyps 02/09/2021 Overview (02/09/2021): Added automatically from request for surgery [id number] Hyperlipidemia, unspecified hyperlipidemia type 12/12/2020 Hypertension, unspecified [...] season) 2024 06/29/2021, 11/21/2020, 10/12/2020 PHQ-2 (Physician [place]) 09/01/2024 05/20/2023 DTaP, Tdap and Td Vaccines [...] this topic Medical Devices Implanted Type Area Cartridge Loader Device Identifier Shelf Expiration Date Model / Serial / Lot Iol Naeem [id number]/31/20 17 Implanted:Qty: 1 on 05/01/2017 by Russell Fields MD Lens Right: Eye NAEEM - SURGICAL DIV [id number] / [id number] / Iol Naeem [id number]/28/20 17 Implanted:Qty: 1 on 05/29/2017 by Russell Fields MD Lens Left: Eye NAEEM - SURGICAL DIV [id number] / [id number] / Screw Screw Right: Toe Procedures [...] Thompson, 01/16/2022 12:44 PM us Marce An POWER DISTRIBUTION ENGINEER DEXA Final Res ult * COLONOSCOPY GENERIC (12/04/2016) 12/04/2016 Narrative 12/04/2016 Ordered by an unspecified provider. us Documents Scanned SCANNING Final Result from Last 3 Months or Most Recently Relevant to Health Maintenance Insurance MEDICARE [employer] Care Teams Glove Printer Relationship Specialty Start Date End Date Janet Martinez FNP [address] [address] PCP - General Nurse Practitioner Family 07/08/23 Russell Fields MD Referring Physician OPHTHALMOLOGY 02/06/21 Fransisco Borjas MD [address] [place] [id number] DERMATOLOGY 02/06/21 Amy Baez FNP [address] [address] Nurse Practitioner CARDIOLOGY 10/08/22
--- OUTSIDE RECORDS SUMMARY | 2025-03-24 22:31 | XMS_ITS | Clinical Summary ---
Author Organization [facility] Address [address] [place] [address] Care Team Providers Care Sidehand Name Role Phone Florencio Wilson MD Primary Care Provider Unavailabl e Source Comments [facility],non-owned Affiliates and Associated Physician Practices is amultiple site organization consisting of ambulatory clinics and hospital sitesin [place], [place]. This disclosure is being madepursuant to the Care Everywhere program and may not contain all information available regarding this patient. Last updated 18.[facility] Allergies No known active allergies Medications * [...] complete this topic Insurance [employer] MED[employer] Member Subscriber Plan / Payer (Ef fective 2014-) Name:Joya Pugh Relation to Subscriber:Self Name:Joya Pugh Payer ID:Not on file Group ID:Not on file Type:[employer] Address: [facility] [address] [place], [place] MEDICARE Care Teams Sidehand Relationship Specialty Start Date End Date Florencio Wilson MD PCP - General Internal Medicine 11/26/19
--- OUTSIDE RECORDS SUMMARY | 2025-03-24 22:31 | XMS_ITS | Referral Summary ---
Author Organization [facility] Address [address] [place] [address] Care Team Providers Care Wash Oil Cooler Operator Name Role Phone Janet Martinez NP Primary Care Provider [phone] Axel Levy MD Unavailable [phone] Encounters Date Type Department Care Team Description 01/12/2025 Hospital Encounter [facility] [address] [place] [address] Orville Hernández MD 12/30/2024 Telephone [facility] Gastroenterology at [place] [address] [place] [address] Jen Mckeon from Last 3 [...] mcg tablet TAKE 1 TABLET BY MOUTH FLIGHT RADIO OPERATOR BEFORE BREAKFAST 100 tablet 1 02/13/20 25 [...] 08/13/2024 Assessment & Plan (08/13/2024 6:10 PM SET DESIGNER): Burn on hand was covered with silvadene [...] drawn. Assessment & Plan (08/05/2023 11:22 AM SET DESIGNER): Continues Zetia, no side effects reported. Awaiting [...] ordered. Assessment & Plan (08/05/2023 11:22 AM SET DESIGNER): BP stable in office, awaiting labs. Assessment [...] (09/03/2022): Added automatically from request for surgery [id number] Lumbar degenerative disc disease 12/12/2020 Assessment & Plan (08/05/2023 11:21 AM SET DESIGNER): Had been seeing [facility] in [place], will be checking with insurance to get [...] (09/03/2022): Added automatically from request for surgery [id number] Rash and nonspecific skin eruption 12/12/2020 08/13/2024 [...] on file Legal Sex Female 2:10 AM SET DESIGNER Gender Identity Not on file Sexual Orientation Not on file Last Filed Vital Signs Vital Sign Reading Time Taken Comments Blood Pressure 124/62 12/09/2024 2:49 PM CDT Pulse 91 12/09/2024 2:49 PM CDT Temperature 36.5 C (97.7 F) 12/09/2024 2:49 PM CDT Respiratory Rate 18 08/05/2024 11:21 AM SET DESIGNER Oxygen Saturation 98% 12/09/2024 2:49 PM CDT [...] compared to prior imaging studies performed at [facility] on 03/17/2018, 04/29/2019 and 08/10/2020. There [...] compared to prior imaging studies performed at [facility] on 03/17/2018, 04/29/2019 and 08/10/2020. There [...] Narrative 02/21/2017 Ordered by an unspecified provider. [facility] Provider IMG DXA PROCEDURES Final Result from Last 3 Months or Most Recently Relevant to Health Maintenance Insurance MEDICARE [facility] [place] MEDICARE MEDICARE [facility] [place] Care Teams Wash Oil Cooler Operator Relationship Specialty Start Date End Date Janet Martinez NP [address] [facility] [address] [place] [address] PCP - General Family Medicine 06/24/23 Axel Levy MD [facility]. [facility] [address] [place] [address] Referring Physician Cardiology 06/24/23
--- OUTSIDE RECORDS SUMMARY | 2025-03-24 22:31 | XMS_ITS | Clinical Summary ---
Author Organization [facility] Care Team Providers Care Is Architect Name Role Phone Unavailable Primary Care Provider Unavailabl e Social History Tobacco Use Types Packs/Day Years Used Date Smoking Tobacco: Never Assessed Comments Unknown Sex and Gender Information Value Date Recorded Sex Assigned at Not on file Legal Sex Female 1:07 PM TREE CLIMBER Gender Identity Not on file Sexual Orientation [...]
--- OUTSIDE RECORDS SUMMARY | 2025-03-24 22:31 | XMS_ITS | Continuity of Care Document ---
Author Organization [facility] Address [address] [place] [address] Phone Care Team Providers Care Pension Agent Name Role Phone Hargrove OD, Man Unavailable Unavailable Advance Directives Directive Yes / No Effective Date File Name No Information Encounters Encounter Description Practice Location Reason(s) For Visit Diagnoses Date Provider Providers Copied on Encounter [facility], [address], [place], [place], [id number], [place] tel:[phone] [facility] [place] No Information Juvenal-2 3-200 6 Hargrove OD Man. [address] [place] , [address], [place], [address], [place]. tel:[phone] Family History Family Member Type Diagnosis Age At Onset No Information Payers Payer name Insurance type Covered democrat ID Authoriza tion(s) No Information Social History [...]
--- OUTSIDE RECORDS SUMMARY | 2025-03-24 22:31 | XMS_ITS | Continuity of Care Document ---
Author Name [facility] Organization [facility] Care Team Providers Care Die Assembler Name Role Phone [facility] Unavailable Unavailable Social History Combined list of available smoking, tobacco, and other social history from Department of Defense and Veterans Affairs facilities. Social History Type Response Date Comment Sourc e This section is an empty social history section. [facility]
--- OUTSIDE RECORDS SUMMARY | 2025-03-24 22:31 | XMS_ITS | Clinical Summary ---
Author Organization [facility] Address [address] [place] [address] Care Team Providers Care Field Advisor Name Role Phone Janet Martinez NP Primary Care Provider [phone] Axel Levy MD Unavailable [phone] Allergies No known active allergies Medications ascorbic [...] mcg tablet TAKE 1 TABLET BY MOUTH DEPUTY FIRE MARSHAL BEFORE BREAKFAST 100 tablet 1 02/13/20 25 [...] 08/13/2024 Assessment & Plan (08/13/2024 6:10 PM BLENDING TECHNICIAN): Burn on hand was covered with silvadene [...] drawn. Assessment & Plan (08/05/2023 11:22 AM BLENDING TECHNICIAN): Continues Zetia, no side effects reported. Awaiting [...] ordered. Assessment & Plan (08/05/2023 11:22 AM BLENDING TECHNICIAN): BP stable in office, awaiting labs. Assessment [...] (09/03/2022): Added automatically from request for surgery [id number] Lumbar degenerative disc disease 12/12/2020 Assessment & Plan (08/05/2023 11:21 AM BLENDING TECHNICIAN): Had been seeing [facility] in [place], will be checking with insurance to get [...] (09/03/2022): Added automatically from request for surgery [id number] Rash and nonspecific skin eruption 12/12/2020 08/13/2024 Laceration of right upper extremity 12/07/2019 08/13/2024 Pain in female genitalia on intercourse 06/29/2015 08/13/2024 Encounters Date Type Department Care Team Description 01/12/2025 Hospital Encounter [facility] [address] [place] [address] Orville Hernández MD 12/30/2024 Telephone [facility] Gastroenterology at [address] [place] [address] Jen Mckeon from Last 3 Months Immunizations Immunization Administration Dates Next Due Influenza, Quadrivalent, Hig h Dose, Preservative Free, Intrr 06/24/2023,05/29/2022,06/13/2021,05/28,06/09/2019,06/15/2014 Influenza, Trivalent, High D ose, Split, Preservative Free, Intramuscular 06/09/2019,06/15/2014 Influenza, Unspecified 06/09/2019,06/15/2014 Tdap 11/29/2019 ZOSTER Recombinant 03/05/2022,01/02/2022 Surgical History Surgery Date Site/Laterality Comments MD TONSILLECTOMY PRIMARY/SEC ONDARY <AGE 12 Tonsillectomy - (Added by TW Conv) MD REPAIR RECTOCELE SEPARATE PROCEDURE Rectocele Repair - cystocele repair (Added by TW Conv) MD BIOPSY BREAST OPEN INCISIONAL Incisional Breast Biopsy - (Added by TW Conv) MD LIG/TRNSXJ FLP TUBE ABDL/ VAG APPR UNI/BI Tubal Ligation - (Added by TW Conv) MD DILATION & CURETTAGE DX&/ THER NONOBSTETRIC Dilation And Curettage - (Added by TW Conv) MD INJECTION AA&/STRD OTHER PERIPHERAL NERVE/BRANCH Peripheral Nerve Block Wrist Median - (Added by TW Conv) MD CORRJ HLX VLGS BNCTY SESM DC W/DOUBLE OSTEOTOMY Hallux Valgus (Bunion) Correction - (Added by Conv) MD NEUROPLASTY &/TRANSPOS ME ELLY NRV CARPAL TUNNE Neuroplasty Median Nerve At Carpal Tunnel - (Added by Conv) MD CORRJ HLX VLGS BNCTY SESM DC RESCJ [...] on file Legal Sex Female 2:10 AM BLENDING TECHNICIAN Gender Identity Not on file Sexual Orientation Not on file Obstetrics History Last Filed Vital Signs Vital Sign Reading Time Taken Comments Blood Pressure 124/62 12/09/2024 2:49 PM CDT Pulse 91 12/09/2024 2:49 PM CDT Temperature 36.5 C (97.7 F) 12/09/2024 2:49 PM CDT Respiratory Rate 18 08/05/2024 11:21 AM BLENDING TECHNICIAN Oxygen Saturation 98% 12/09/2024 2:49 PM CDT [...] compared to prior imaging studies performed at [facility] on 03/17/2018, 04/29/2019 and 08/10/2020. There are [...] compared to prior imaging studies performed at [facility] on 03/17/2018, 04/29/2019 and 08/10/2020. There are [...] Recently Relevant to Health Maintenance Insurance MEDICARE [facility] [place] MEDICARE MEDICARE [employer] [place] Care Teams Field Advisor Relationship Specialty Start Date End Date Janet Martinez NP [address] [facility] [address] [place], [place] [id number] PCP - General Family Medicine 06/24/23 Axel Levy MD [facility]. [facility] [address] [place] [address] Referring Physician Cardiology 06/24/23
[2025-03-24 22:46] VITALS: BP 119/68; PULSE 77; RESP 15; O2SAT 100
[2025-03-24] MEDS: SODIUM CHLORIDE 0.9% IV 500 ML 999 ML IV CONT (22:57)
[2025-03-24 23:05] LABS: Troponin I 0.057 ng/mL (0.000-0.034)
[2025-03-24 23:13] LABS: Cannabinoid Screen Urine Negative (Negative)
[2025-03-24 23:14] LABS: Add Urine Microscopic? YES; Appearance Urine Turbid (Clear); Glucose Urine UA Negative (Negative); Leukocyte Esterase Ur 3+ LEU/UL (Negative); Need Manual Microscopic Reviewed; Nitrate Urine Positive (Negative); Non Pathogenic Casts >20; Specific Grav Ur 1.019 (1.001-1.035)
[2025-03-24 23:15] VITALS: RESP 21
[2025-03-24 23:22] LABS: Thyroid Stimulating Hormone 6.130 uIU/mL (0.465-4.680)
[2025-03-24 23:42] LABS: Acetaminophen < 10 ug/mL (10-30); Ammonia < 9 umol/L (9-30); Lipase 130 U/L (23-300); Salicylate < 1.0 mg/dL (2-20)
[2025-03-24 23:52] VITALS: PULSE 86; RESP 15; O2SAT 100
[2025-03-25] VITALS (20 sets, daily range): BP systolic 109–130; BP diastolic 49–56; PULSE 65–85; RESP 10–113; TEMP 36.4–36.9; O2SAT 98–100; BMI 23.9
--- NOTE | 2025-03-25 | ECHO_ITS ---
Patient Info Name: Joya Antonio Age: 74 years : 1950 Gender: Female Ht: 64 in Wt: 139 lbs BSA: 1.70 m2 HR: 79 bpm BP: 117 / 52 mmHg Heart Rhythm: Sinus Rhythm Technical Quality: Fair Exam Date: 03/25/2025 3:17 PM Patient Status: I Admit Date: 03/25/2025 Exam Type: CA echo dop color flow w con Complete two-dimensional, color flow and Doppler transthoracic echocardiogram is performed with contrast to opacify the left ventricle and to improve the deliniation of the left ventricle endocardial borders. Staff Referring Physician: Neil Marquez Investigator Claims: Nancy Tiwari Attending Provider: Ana Cristina Woods Contrast/Agitated Saline Contrast/Ag. Saline: Definity Amount: 2.00 ml Administered By: Nancy Tiwari Existing IV Access: Yes IV Access Condition: patent with no signs of infiltration Summary 1. Definity contrast administered improved wall motion interpretation. 2. Left ventricular chamber dimension is normal. 3. Left ventricular systolic function is normal, estimated at 65-70. 4. The left ventricular diastolic function is grade I diastolic dysfunction. 5. E/e' 10 is mildly elevated. 6. Left atrial chamber dimension is mildly enlarged. 7. There is severe aortic valve sclerosis. 8. There is mild aortic valve stenosis with a peak velocity of 245 cm/s, mean gradient of 10 mmHg, and aortic valve area of 1.7 cm2. 9. The mitral valve has a moderately calcified annulus. 10. No pulmonary hypertension, estimated pulmonary arterial systolic pressure is 27 mmHg. Left Ventricle E/e' 10 is mildly elevated. Left ventricular chamber dimension is normal. Left ventricular systolic function is normal, estimated at 65-70. The left ventricular diastolic function is grade I diastolic dysfunction. Definity contrast administered improved wall motion interpretation. Right Ventricle Right ventricular chamber dimension is normal. Right ventricular systolic function is normal and with normal TAPSE 2.1 cm. Left Atria Left atrial chamber dimension is mildly enlarged. Right Atria Right atrial chamber dimension is normal. Aortic Valve The aortic valve is trileaflet. There is severe aortic valve sclerosis. There is mild aortic valve stenosis with a peak velocity of 245 cm/s, mean gradient of 10 mmHg, and aortic valve area of 1.7 cm2. There is no aortic valve regurgitation. Pulmonic Valve There is no pulmonic regurgitation. Mitral Valve The mitral valve has a moderately calcified annulus. There is no mitral valve stenosis. There is no mitral valve regurgitation. Tricuspid Valve There is mild tricuspid valve regurgitation. No pulmonary hypertension, estimated pulmonary arterial systolic pressure is 27 mmHg. Pericardium/Pleural There is no pericardial effusion. Inferior Vena Cava Normal inferior vena cava with >50% collapse upon inspiration consistent with normal right atrial pressure, 5 mmHg. Aorta The aortic root size at the sinus of Valsalva is normal. Left Ventricular Outflow Tract Name Value Normal LVOT 2D LVOT Diameter 1.9 cm LVOT Doppler LVOT Peak Velocity 136 cm/s LVOT Peak Gradient 7 mmHg LVOT Mean Gradient 3 mmHg LVOT VTI 26 cm LVOT VTI/AV VTI Ratio 0.6 LVOT Stroke Volume 72 ml LVOT CO 4.8 l/min LVOT CI 2.9 l/min/m2 Pulmonic Valve Name Value Normal RVOT Doppler RVOT Peak Velocity 91 cm/s RVOT Peak Gradient 3 mmHg PV Doppler PV Peak Velocity 129 cm/s PV Peak Gradient 7 mmHg Mitral Valve Name Value Normal MV Diastolic Function MV E Peak Velocity 82 cm/s MV A Peak Velocity 103 cm/s MV E/A 0.8 MV Decel Time (PW) 271 ms MV Annular TDI MV E/e' (Septal) 11.5 MV E/e' (Lateral) 9.9 MV E/e' (Average) 10.7 Tricuspid Valve Name Value Normal TV Regurgitation Doppler TR Peak Velocity 237 cm/s TR Peak Gradient 19 mmHg Estimated PAP/RSVP RA Pressure 5 mmHg <=5 PA Systolic Pressure 27 mmHg <36 RV Systolic Pressure 27 mmHg <36 TV Annular TDI TV Lateral Preethi s' Velocity 17.1 cm/s >=9.5 Aorta Name Value Normal Ascending Aorta Ao Root Diameter (MM) 2.5 cm Ao Root Diam Index (MM) 1.5 cm/m2 Aortic Valve Name Value Normal AV Doppler AV Peak Velocity 245 cm/s AV Peak Gradient 24 mmHg AV Mean Gradient 10 mmHg AV VTI 44 cm AV Area (Cont Eq VTI) 1.7 cm2 >=3.0 AV Area (Cont Eq [place]) 1.5 cm2 AV DI ([place]) 0.56 AV Regurgitation 2D LVOT Area 2.8 cm2 Ventricles Name Value Normal LV Dimensions 2D/MM IVS Diastolic Thickness (2D) 0.7 cm 0.6-1.0 LVID Diastole (2D) 4.4 cm 3.8-5.2 LVIW Diastolic Thickness (2D) 0.7 cm 0.6-0.9 LVID Systole (2D) 2.3 cm 2.2-3.5 LVOT Diameter 1.9 cm LV Mass (2D Cubed) 96.82 g 67.00-162.00 LV Mass Index (2D Cubed) 57 g/m2 43-95 Relative Wall Thickness (2D) 0.32 <=0.42 LV Fractional Shortening/Ejection Fraction 2D/MM LV Fractional Shortening (2D) 49 % 27-45 LV EF (2D Teichholz) 81 % LV Diastolic Volume (4C MOD) 31 ml LV EF (4C MOD) 65 % LV Diastolic Volume (2C MOD) 29 ml LV EF (2C MOD) 73 % LV Diastolic Volume (BP MOD) 32 ml 46-106 LV Diastolic Volume Index (BP MOD) 19 ml/m2 29-61 LV Systolic Volume (BP MOD) 10 ml 14-42 LV Systolic Volume Index (BP MOD) 6 ml/m2 8-24 LV EF (BP MOD) 70 % 54-74 LV Diastolic Length (4C) 6.3 cm LV Systolic Length (4C) 6.0 cm LV Stroke Volume (4C MOD) 20 ml Atria Name Value Normal LA Dimensions LA Dimension (MM) 5.0 cm 2.7-3.8 LA Volume (4C A-L) 48 ml LA Volume (BP A-L) 54 ml RA Dimensions RA Area (4C) 16.4 cm2 <=18.0 Report Signatures
[2025-03-25] MEDS: ASPIRIN 81 MG CHEWABLE TABLET 324 MG PO (00:22)
[2025-03-25] MEDS: cefTRIAXone 1 GM in SODIUM CHLORIDE 0.9% IV 50 ML 100 ML IVPB ×2 (00:24→21:01)
[2025-03-25 00:43] LABS: Creatine Kinase 4788 U/L (30-135)
--- NOTE | 2025-03-25 01:27 | ECG_ITS ---
Test Date: 2025-03-25 01:51:42 Measurements Intervals Bailey Rate: 85 P: 50 ND: 165 QRS: -29 QRSD: 76 T: 10 QT: 385 QTc: 460 Interpretive Statements SINUS RHYTHM LOW QRS VOLTAGE IN PRECORDIAL LEADS [QRS DEFLECTION < 1.0 mV IN CHEST LEADS] Compared to ECG 03/24/2025 21:38:07 NO SIGNIFICANT CHANGES Electronically Signed On 03-26-2025 18:28:00 CDT by Loc Moore M.D.
[2025-03-25] MEDS: SODIUM CHLORIDE 0.9% IV 1,000 ML 999 ML IV CONT ×2 (02:23)
[2025-03-25 02:29] LABS: Troponin I 0.053 ng/mL (0.000-0.034)
--- NOTE | 2025-03-25 03:40 | PC.NURSE ---
This patient, Joya Antonio, was admitted to IMU Room 206-01. Patient/family oriented to hospital policies and general routines including ID bracelet, bed and alarms, visiting hours, pain management, procedures, bathroom and other care routines, personal items, smoking policy, room service/diet, and visiting hours. Information on how to activate the Rapid Response Team has been discussed. Patient/Family are encouraged to report perceived risks to care and to ask questions if they do not understand what they are told or what they should do.
[2025-03-25 03:46] LABS: Free T4 Free Thyroxine 1.39 ng/dL (0.78-2.19)
[2025-03-25] MEDS: SODIUM CHLORIDE 0.9% IV 1,000 ML 150 ML IV CONT ×3 (04:26→17:05)
--- NOTE | 2025-03-25 14:14 | P.HP_ITS ---
H&P: HPI History of Present Illness Date/Time: 03/25/25 14:14 Chief Complaint: Fall Narrative: This is a 74-year-old female who presents to the ED after a fall and with confusion. Her family note that she will intermittently experience confusion and has steadily been on the decline in general over the past few years. It also noted hallucination confabulating stories and also getting concerned about her pets missing even though they are in the house. Patient otherwise lives alone and last time they spoke with her was on Friday. When they went in to check on her yesterday she was found naked on the floor. It is unclear how long she has been down there. Her house was a mess as well. She reports that she was moving stuffs in her house. And while moving C cell and could not get up. There is a history of alcohol use. Patient states she drinks glass of wine nightly although has not had a drink since Friday. Family noted that she abuses alcohol. She has underlying dementia. In the ED are vitals were stable. Laboratory workup revealed WBC of 9.4 hemoglobin 10.6 platelet count 308 sodium low at 128 potassium 4.5 chloride 94 bicarbonate 22 BUN 24 creatinine 1.02 blood glucose 113 ammonia less than 9 total creatinine kinase is was 4788 represent leg rhabdomyolysis AST 2/50 ALT 75 total bilirubin of 1.4 alk phos rhythm 60 lipase level was normal at 130 TSH is 6.13 urinalysis showed more than 100 urine WBC 3-5 urine RBC UDS was negative eval alcoholism 10 acetaminophen less than 10 salicylate less than 1. EKG showed normal sinus rhythm with nonspecific ST-T changes. Head CT showed no acute intracranial process. Age-related changes noted. CT facial bone cervical spine showed left supraorbital scalp hematoma with no calvarial or maxillofacial fracture. Severe cervical and upper thoracic spondylosis with no acute osseous abnormality. Chest x-ray showed no acute cardiopulmonary disease CS abdomen pelvis CT was performed which showed no acute fracture or acute intrathoracic abdominal or pelvic process. Cirrhosis with portal hypertension noted cholelithiasis and small sliding-type hiatal hernia She is admitted for further treatment. Review of Systems Review of Systems: - CONSTITUTIONAL: Denies weight loss, fe annelise and chills. - HEENT: Denies changes in vision and he aring - RESPIRATORY: Denies SOB and cough. - CV: Denies palpitations and CP. - GI: Denies abdominal pain, nausea, vom iting and diarrhea. - : Denies dysuria and urinary frequen cy. - MSK: Denies myalgia and joint pain. - SKIN: Denies rash and pruritus. - NEUROLOGICAL: See HPI - PSYCHIATRIC: Denies recent changes in mood. Denies anxiety and depression. [facility] Past Medical History Medical History Back pain Hyperlipidemia History of hypothyroidism History of hypertension Surgical History Surgical History (Updated 04/05/23 @ 18:47 by Emilia Rojas, PRECISION [employer]GRICULTURE TECHNICIAN) H/O breast biopsy H/O bladder repair surgery H/O tubal ligation H/O cataract extraction H/O carpal tunnel repair Left H/O skin graft History of bunionectomy History of tonsillectomy Family History Family History Sibling Thyroid disease Mother Lung cancer Social History Social History Social History: Previously stated She had 2 drinks of bourbon daily and sometimes has a glass of white wine when she cooks; now states that she has a glass of wine each evening. She is a lifelong nonsmoker. She is . She has a son and daughter. 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 Code status full code Smoking status: Never smoker Alcohol intake: current Drinks per week: 35 Alcohol use details: daily Substance use: never Do You Feel Safe in your Home?: Yes Lack of Transportation: No Lack of Food: Never True Current Housing: I Have Housing Concerned About Future Housing: No Difficulty Paying Gas/Electric Bills: No Difficulty Paying for Meds: No Currently Unemployed: No Education: Decline to Answer Difficulty w/ Childcare or Family Care: No Spiritual care concerns: No Meds Home Medications and Allergies Home Medications ?Medication ?Instructions ?Recorded ?Confirmed ?Type ezetimibe 10 mg tablet 10 mg PO DAILY 04/05/23 03/24/25 History levothyroxine 50 mcg tablet 50 mcg PO DAILY 04/05/23 03/24/25 History telmisartan 80 mg tablet 80 mg PO DAILY 04/05/23 03/24/25 History Allergies Allergy/AdvReac Type Severity Reaction Status Date / Time No Known Allergies Allergy Unknown Verified 03/25/25 05:32 Vital Signs Vital Signs - 24 hr 03/24/25 21:15 03/24/25 21:44 03/24/25 22:46 Temperature 98.3 F Pulse Rate 96 77 Respiratory Rate 14 15 Blood Pressure 115/68 119/68 Pulse Oximetry 100 100 Oxygen Delivery Room Air Room Air 03/24/25 23:15 03/24/25 23:52 03/25/25 01:15 Temperature Pulse Rate 86 81 Respiratory Rate 21 H 15 11 L Blood Pressure Pulse Oximetry 100 100 Oxygen Delivery 03/25/25 01:30 03/25/25 01:45 03/25/25 02:16 Temperature Pulse Rate 84 77 78 Respiratory Rate 14 11 L 12 Blood Pressure Pulse Oximetry 100 100 100 Oxygen Delivery 03/25/25 02:31 03/25/25 02:32 03/25/25 02:45 Temperature Pulse Rate 77 72 75 Respiratory Rate 113 H 10 L 13 Blood Pressure 109/56 L Pulse Oximetry 100 100 100 Oxygen Delivery 03/25/25 03:13 03/25/25 03:17 03/25/25 04:00 Temperature 97.9 F Pulse Rate 85 84 82 Respiratory Rate 11 L 16 16 Blood Pressure 130/56 L Pulse Oximetry 98 100 100 Oxygen Delivery 03/25/25 04:00 03/25/25 04:00 03/25/25 06:00 Temperature Pulse Rate 78 72 Respiratory Rate Blood Pressure Pulse Oximetry Oxygen Delivery Room Air 03/25/25 07:53 03/25/25 08:00 03/25/25 10:00 Temperature 97.5 F L Pulse Rate 81 65 82 Respiratory Rate 14 Blood Pressure 124/49 L Pulse Oximetry 100 Oxygen Delivery 03/25/25 11:34 03/25/25 12:00 Temperature 98.5 F Pulse Rate 79 76 Respiratory Rate 16 Blood Pressure 117/52 L Pulse Oximetry 100 Oxygen Delivery Exam Narrative: GENERAL: Frail looking, and in no acute distress. HEAD: Normocephalic, left forehead bruise. EYES: Left eye injected, right eye normal. Non icteric bilaterally ENT: Nares clear, no rhinorrhea or epistaxis. NECK: Supple. No meningismus. CHEST: Speaking in full sentences. No respiratory distress. Lungs clear to auscultation bilaterally without wheezes or crackles HEART: Regular rate and rhythm. . ABDOMEN: Soft, nondistended. No rigidity or guarding. Not peritoneal. No tenderness to palpation throughout. SKIN: Warm, dry. Well-healing ecchymosis around left eye and left holiness. NEURO: No focal deficits. Alert. Following commands. Normal speech without aphasia or dysarthria. PSYCH: Normal mood and affect. H&P: Results Labs Labs: Short CBC 03/24/25 Range/Units 21:39 WBC 9.4 (4.5-10.0) K/mm3 Hgb 10.6 L (12.0-15.0) g/dL Hct 32.7 L (37.0-47.0) % Plt Count 308 (150-375) k/mm3 BMP 03/24/25 21:39 Sodium 128 L Potassium 4.5 Chloride 94 L Carbon Dioxide 22 BUN 24 H D Creatinine 1.02 H Glucose 113 H Calcium 9.7 Cardiac Enzymes 03/24/25 03/25/25 Range/Units 21:39 01:55 Total Creatine Kinase 4788 H (30-135) U/L Troponin I 0.057 H* 0.053 H* (0.000-0.034) ng/mL Liver Function 03/24/25 Range/Units 21:39 Total Bilirubin 1.4 H (0.2-1.3) mg/dL AST 250 H (14-36) U/L ALT 75 H (6-35) U/L Alkaline Phosphatase 60 (38-126) U/L Albumin 4.2 (3.5-5.1) g/dL Urine 03/24/25 Range/Units 22:47 Urine Color Dark yellow (Yellow) Urine Appearance Turbid H (Clear) Urine pH 5.5 (5.0-9.0) Ur Specific [place] 1.019 (1.001-1.035) Urine Protein 1+ H (Negative) mg/dL Urine Glucose (UA) Negative (Negative) mg/dL Assessment and Plan Assessment and plan (1) Hyperlipidemia: Code(s): E78.5 - Hyperlipidemia, unspecified Status: Acute (2) History of hypertension: Code(s): Z86.79 - Personal history of other diseases of the circulatory system Status: Acute (3) History of hypothyroidism: Code(s): Z86.39 - Personal history of other endocrine, nutritional and metabolic disease Status: Acute (4) Cirrhosis: Code(s): K74.60 - Unspecified cirrhosis of liver Status: Acute (5) Portal venous hypertension: Code(s): K76.6 - Portal hypertension Status: Acute (6) Cholelithiasis: Code(s): K80.20 - Calculus of gallbladder without cholecystitis without obstruction Status: Acute (7) Transaminitis: Code(s): R74.01 - Elevation of levels of liver transaminase levels Status: Acute (8) UTI (urinary tract infection): Code(s): N39.0 - Urinary tract infection, site not specified Status: Acute (9) Anemia: Code(s): D64.9 - Anemia, unspecified Status: Acute (10) Rhabdomyolysis: Code(s): M62.82 - Rhabdomyolysis Status: Acute (11) Traumatic ecchymosis of face: Code(s): S00.83XA - Contusion of other part of head, initial encounter Status: Acute (12) Fall: Code(s): W19.XXXA - Unspecified fall, initial encounter Status: Acute (13) Confusion: Code(s): R41.0 - Disorientation, unspecified Status: Acute Plan This is a 74-year-old female who presents to the ED after a fall and with confusion. Her family note that she will intermittently experience confusion and has steadily been on the decline in general over the past few years. It also noted hallucination confabulating stories and also getting concerned about her pets missing even though they are in the house. Patient otherwise lives alone and last time they spoke with her was on Friday. When they went in to check on her yesterday she was found naked on the floor. It is unclear how long she has been down there. Her house was a mess as well. She reports that she was moving stuffs in her house. And while moving C cell and could not get up. There is a history of alcohol use. Patient states she drinks glass of wine nightly although has not had a drink since Friday. Family noted that she abuses alcohol. She has underlying dementia. In the ED are vitals were stable. Laboratory workup revealed WBC of 9.4 hemoglobin 10.6 platelet count 308 sodium low at 128 potassium 4.5 chloride 94 bicarbonate 22 BUN 24 creatinine 1.02 blood glucose 113 ammonia less than 9 total creatinine kinase is was 4788 represent leg rhabdomyolysis AST 2/50 ALT 75 total bilirubin of 1.4 alk phos rhythm 60 lipase level was normal at 130 TSH is 6.13 urinalysis showed more than 100 urine WBC 3-5 urine RBC UDS was negative eval alcoholism 10 acetaminophen less than 10 salicylate less than 1. EKG showed normal sinus rhythm with nonspecific ST-T changes. Troponin 0.05 7-0.[address] showed no acute intracranial process. Age-related changes noted. CT facial bone cervical spine showed left supraorbital scalp hematoma with no calvarial or maxillofacial fracture. Severe cervical and upper thoracic spondylosis with no acute osseous abnormality. Chest x-ray showed no acute cardiopulmonary disease CS abdomen pelvis CT was performed which showed no acute fracture or acute intrathoracic abdominal or pelvic process. Cirrhosis with portal hypertension noted cholelithiasis and small sliding-type hiatal hernia She is admitted for further treatment. Fall possible syncope Traumatic scalp hematoma Hyponatremia mild acute on chronic Elevated liver enzymes Cirrhosis of liver with portal hypertension Dementia UTI ceftriaxone follow urine culture History of alcohol abuse Hypothyroidism Hyperlipidemia Hypertension DVT prophylaxis Code status full code Hospitalist [facility] Advance Care Plan I have confirmed that the patient's Advanced Care Plan is present, code status is documented, or surrogate decision maker is listed in patient medical record.: Yes Medication Reconciliation I have utilized all available resources to obtain, update and review the patients current medications (includes all prescriptions, OTC, herbals, cannabis, and nutritional supplements).: Yes
[2025-03-25 15:42] LABS: Hematocrit 30.3 % (37.0-47.0); Hemoglobin 9.5 g/dL (12.0-15.0); Immature Granulocyte Percent A 0.3 % (0-0.5); Lymphocytes Absolute Auto 1.06 K/mm3 (0.9-3.2); Mean Corpuscular HGB Conc 31.4 g/dl (32-36); Mean Corpuscular Hemoglobin 29.2 pg (26-34); Mean Corpuscular Volume 93.2 fl (80-100); Nucleated Red Blood Cells Absolute Auto 0.000 K/mm3 (0.0-0.012); Nucleated Red Blood Cells Perc 0.0 % (0.0-0.2); Platelet Count Result 244 k/mm3 (150-375); Red Blood Count 3.25 M/mm3 (4.2-5.4); White Blood Count 6.0 K/mm3 (4.5-10.0)
[2025-03-25] MEDS: PERFLUTREN LIPID MICROSPHERES 1.5 ML VIAL DILUTED TO 10 ML TOTAL VOLUME IV PUSH (15:55)
[2025-03-25 16:00] LABS: Alanine Aminotransferase 53 U/L (6-35); Albumin Level 3.5 g/dL (3.5-5.1); Alkaline Phosphatase 65 U/L (38-126); Anion Gap 8 mmol/L (4-12); Aspartate Amino Transferase 140 U/L (14-36); Bilirubin,Total 0.6 mg/dL (0.2-1.3); Blood Urea Nitrogen 18 mg/dL (7-17); Calcium 8.9 mg/dL (8.4-10.2); Carbon Dioxide 21 mmol/L (22-30); Chloride 101 mmol/L (98-107); Creatine Kinase 1466 U/L (30-135); Estimated CRCL calculation 40 ml/min; Estimated Glomerular Filt Rate > 60; Glucose 89 mg/dL (65-110); Magnesium 1.9 mg/dL (1.6-2.3); Potassium 3.7 mmol/L (3.4-5.0); Sodium 130 mmol/L (137-145); Total Protein 6.2 g/dL (6.3-8.2)
--- NOTE | 2025-03-25 16:12 | IVDEFINITY ---
Prior to administration of IV Definity the patient was educated on the risks and benefits of the imaging enhancing agent including potential adverse side effects. The patient verbalized understanding. Allergies were verified. No exclusion criteria were identified and at least one of the following inclusion criteria were met: 1) physician request, 2) patient technically difficult to image (per the [place] [employer] guidelines of two or more segments not discernable within the apical view), or 3) questionable left ventricular function. ?
[2025-03-26] VITALS (10 sets, daily range): BP systolic 100–131; BP diastolic 47–65; PULSE 66–88; RESP 16–18; TEMP 36.6–37.2; O2SAT 98–99
[2025-03-26] MEDS: SODIUM CHLORIDE 0.9% IV 1,000 ML 100 ML IV CONT (04:25)
[2025-03-26 04:29] LABS: Hematocrit 29.0 % (37.0-47.0); Hemoglobin 9.2 g/dL (12.0-15.0); Immature Granulocyte Percent A 0.2 % (0-0.5); Lymphocytes Absolute Auto 1.02 K/mm3 (0.9-3.2); Mean Corpuscular HGB Conc 31.7 g/dl (32-36); Mean Corpuscular Hemoglobin 30.0 pg (26-34); Mean Corpuscular Volume 94.5 fl (80-100); Nucleated Red Blood Cells Absolute Auto 0.000 K/mm3 (0.0-0.012); Nucleated Red Blood Cells Perc 0.0 % (0.0-0.2); Platelet Count Result 214 k/mm3 (150-375); Red Blood Count 3.07 M/mm3 (4.2-5.4); White Blood Count 5.1 K/mm3 (4.5-10.0)
[2025-03-26 04:41] LABS: Alanine Aminotransferase 45 U/L (6-35); Albumin Level 3.1 g/dL (3.5-5.1); Alkaline Phosphatase 55 U/L (38-126); Anion Gap 4 mmol/L (4-12); Aspartate Amino Transferase 115 U/L (14-36); Bilirubin,Total 0.6 mg/dL (0.2-1.3); Blood Urea Nitrogen 13 mg/dL (7-17); Calcium 8.7 mg/dL (8.4-10.2); Carbon Dioxide 23 mmol/L (22-30); Chloride 107 mmol/L (98-107); Creatine Kinase 930 U/L (30-135); Estimated CRCL calculation 43 ml/min; Estimated Glomerular Filt Rate > 60; Glucose 96 mg/dL (65-110); Magnesium 1.9 mg/dL (1.6-2.3); Potassium 3.9 mmol/L (3.4-5.0); Sodium 134 mmol/L (137-145); Total Protein 5.7 g/dL (6.3-8.2)
[2025-03-26] MEDS: LEVOTHYROXINE SODIUM 50 MCG TABLET PO (05:34)
[2025-03-26 07:09] LABS: Triiodothyronine (T3), Free 2.2 pg/mL (2.0-4.4)
[2025-03-26] MEDS: EZETIMIBE 10 MG TABLET PO (09:20)
[2025-03-26] MEDS: TELMISARTAN 40 MG TABLET 80 MG PO (09:21)
--- NOTE | 2025-03-26 11:13 | PM.IMPN ---
Progress Note: A&P Assessment and Plan (1) Hyperlipidemia: Code(s): E78.5 - Hyperlipidemia, unspecified Status: Acute (2) History of hypertension: Code(s): Z86.79 - Personal history of other diseases of the circulatory system Status: Acute (3) History of hypothyroidism: Code(s): Z86.39 - Personal history of other endocrine, nutritional and metabolic disease Status: Acute (4) Cirrhosis: Code(s): K74.60 - Unspecified cirrhosis of liver Status: Acute (5) Portal venous hypertension: Code(s): K76.6 - Portal hypertension Status: Acute (6) Cholelithiasis: Code(s): K80.20 - Calculus of gallbladder without cholecystitis without obstruction Status: Acute (7) Transaminitis: Code(s): R74.01 - Elevation of levels of liver transaminase levels Status: Acute (8) UTI (urinary tract infection): Code(s): N39.0 - Urinary tract infection, site not specified Status: Acute (9) Anemia: Code(s): D64.9 - Anemia, unspecified Status: Acute (10) Rhabdomyolysis: Code(s): M62.82 - Rhabdomyolysis Status: Acute (11) Traumatic ecchymosis of face: Code(s): S00.83XA - Contusion of other part of head, initial encounter Status: Acute (12) Fall: Code(s): W19.XXXA - Unspecified fall, initial encounter Status: Acute (13) Confusion: Code(s): R41.0 - Disorientation, unspecified Status: Acute Plan This is a 74-year-old female who presents to the ED after a fall and with confusion. Her family note that she will intermittently experience confusion and has steadily been on the decline in general over the past few years. It also noted hallucination confabulating stories and also getting concerned about her pets missing even though they are in the house. Patient otherwise lives alone and last time they spoke with her was on Friday. When they went in to check on her yesterday she was found naked on the floor. It is unclear how long she has been down there. Her house was a mess as well. She reports that she was moving stuffs in her house. And while moving C cell and could not get up. There is a history of alcohol use. Patient states she drinks glass of wine nightly although has not had a drink since Friday. Family noted that she abuses alcohol. She has underlying dementia. In the ED are vitals were stable. Laboratory workup revealed WBC of 9.4 hemoglobin 10.6 platelet count 308 sodium low at 128 potassium 4.5 chloride 94 bicarbonate 22 BUN 24 creatinine 1.02 blood glucose 113 ammonia less than 9 total creatinine kinase is was 4788 represent leg rhabdomyolysis AST 2/50 ALT 75 total bilirubin of 1.4 alk phos rhythm 60 lipase level was normal at 130 TSH is 6.13 urinalysis showed more than 100 urine WBC 3-5 urine RBC UDS was negative eval alcoholism 10 acetaminophen less than 10 salicylate less than 1. EKG showed normal sinus rhythm with nonspecific ST-T changes. Troponin 0.05 7-0.[address] showed no acute intracranial process. Age-related changes noted. CT facial bone cervical spine showed left supraorbital scalp hematoma with no calvarial or maxillofacial fracture. Severe cervical and upper thoracic spondylosis with no acute osseous abnormality. Chest x-ray showed no acute cardiopulmonary disease CS abdomen pelvis CT was performed which showed no acute fracture or acute intrathoracic abdominal or pelvic process. Cirrhosis with portal hypertension noted cholelithiasis and small sliding-type hiatal hernia She is admitted for further treatment. Fall possible syncope. echo unremarkable. carotid doppler negative. pt ot to see. Traumatic scalp hematoma Hyponatremia mild acute on chronic slowly improving. Elevated liver enzymes improving. likely due to alcohol use Cirrhosis of liver with portal hypertension Dementia not diagnosed before but indicative of this diagnosis UTI ceftriaxone follow urine culture which is pending History of alcohol abuse Hypothyroidism Hyperlipidemia Hypertension DVT prophylaxis Code status full code Subjective Date/time seen: 03/26/25 11:13 Interval history: no overnight events. she is wanting to go home. she has not worked with therapy yet. Review of Systems Review of Systems: All systems reviewed & are unremarkable except as noted in HPI and below Exam Narrative: GENERAL: Frail looking, and in no acute distress. HEAD: Normocephalic, left forehead bruise. EYES: Left eye injected, right eye normal. Non icteric bilaterally ENT: Nares clear, no rhinorrhea or epistaxis. NECK: Supple. No meningismus. CHEST: Speaking in full sentences. No respiratory distress. Lungs clear to auscultation bilaterally without wheezes or crackles HEART: Regular rate and rhythm. . ABDOMEN: Soft, nondistended. No rigidity or guarding. Not peritoneal. No tenderness to palpation throughout. SKIN: Warm, dry. Well-healing ecchymosis around left eye and left yarsanism. NEURO: No focal deficits. Alert. Following commands. Normal speech without aphasia or dysarthria. PSYCH: Normal mood and affect. Objective Data Vital Signs Vital Signs: Vital Signs - 24 hr 03/25/25 11:34 03/25/25 12:00 03/25/25 16:00 Temperature 98.5 F Pulse Rate 79 76 73 Respiratory Rate 16 Blood Pressure 117/52 L Pulse Oximetry 100 Oxygen Delivery 03/25/25 16:20 03/25/25 19:51 03/25/25 20:00 Temperature 98.0 F 98.1 F Pulse Rate 71 74 Respiratory Rate 14 20 Blood Pressure 118/55 L 110/52 L Pulse Oximetry 99 99 Oxygen Delivery Room Air 03/25/25 20:00 03/26/25 00:00 03/26/25 00:04 Temperature 97.8 F Pulse Rate 73 70 74 Respiratory Rate 16 Blood Pressure 100/47 L Pulse Oximetry 99 Oxygen Delivery 03/26/25 04:00 03/26/25 08:00 03/26/25 08:00 Temperature 98.2 F Pulse Rate 66 74 Respiratory Rate 18 Blood Pressure 109/55 L Pulse Oximetry 99 Oxygen Delivery Room Air Intake/Output Intake/Output: Intake & Output 03/23/25 03/24/25 03/25/25 03/26/25 23:59 23:59 23:59 23:59 Intake Total 3042.5 1300 Output Total 10 700 450 Balance -10 2342.5 850 Meds/Results Medications: Active Medications Generic Name Dose Route Start Last Admin Trade Name Freq PRN Reason Stop Dose Admin Acetaminophen 650 mg 03/25/25 01:52 Acetaminophen 325 Mg Tablet PO Q4H PRN Mild Pain (1-3) or Fever Ezetimibe 10 mg 03/26/25 09:00 03/26/25 09:20 Ezetimibe 10 Mg Tablet PO 10 mg DAILY OMID Administration Sodium Chloride 1,000 mls @ 100 mls/hr 03/25/25 01:55 03/26/25 04:25 Normal Saline Iv IV CONT 100 mls/hr .Q10H OMID Administration Ceftriaxone Sodium 1 gm/ 50 mls @ 100 mls/hr 03/25/25 21:00 03/25/25 21:31 Sodium Chloride IVPB Infused Q24H OMID Infusion Levothyroxine Sodium 50 mcg 03/26/25 06:30 03/26/25 05:34 Levothyroxine Sodium 50 Mcg Tablet PO 50 mcg DAILY@0630 OMID Administration Ondansetron HCl 4 mg 03/25/25 01:52 Ondansetron Inj 4 Mg/2 Ml Vial IV PUSH Q4H PRN Nausea Telmisartan 80 mg 03/26/25 09:00 03/26/25 09:21 Telmisartan 40 Mg Tablet PO 80 mg DAILY OMID Administration Radiology Results: ITS Impressions Head CT 03/24/25 22:29 IMPRESSION: 1. No acute intracranial process. 2. Age-related changes including mild diffuse volume loss and mild scattered white matter hypoattenuation consistent with chronic small vessel ischemic disease. Head/Cervical Spine/Facial Bones CT 03/24/25 22:45 IMPRESSION: 1. Left supraorbital scalp hematoma with no calvarial or maxillofacial fracture. 2. Severe cervical and upper thoracic spondylosis with no acute osseous abnormality. Chest X-Ray 03/24/25 22:55 IMPRESSION: 1. No acute cardiopulmonary disease. Chest/Abdomen/Pelvis CT 03/24/25 23:33 IMPRESSION: 1. No acute fracture or acute intrathoracic, abdominal or pelvic process. 2. Cirrhosis with portal venous hypertension. 3. Cholelithiasis. 4. Small sliding-type hiatal hernia. Carotid Doppler Study 03/25/25 21:40 IMPRESSION: 1. <50% stenosis in the right internal carotid artery. 2. <50% stenosis in the left internal carotid artery. Labs Labs: Laboratory Results - last 24 hr 03/25/25 03/25/25 03/26/25 01:55 15:00 03:50 WBC 6.0 5.1 RBC 3.25 L 3.07 L Hgb 9.5 L 9.2 L Hct 30.3 L 29.0 L MCV 93.2 94.5 MCH 29.2 30.0 MCHC 31.4 L 31.7 L RDW 14.7 H 14.9 H Plt Count 244 214 MPV 9.2 9.1 Immature Gran % (Auto) 0.3 0.2 Neut % (Auto) 66.6 60.7 Lymph % (Auto) 17.7 L 20.0 [place] % (Auto) 11.2 H 11.8 H Eos % (Auto) 3.5 6.3 H Baso % (Auto) 0.7 1.0 Lymph # (Auto) 1.06 1.02 [place] # (Auto) 0.7 H 0.6 Eos # (Auto) 0.2 0.3 Baso # (Auto) 0.0 0.1 Abs Immat Gran (auto) 0.02 0.01 Absolute Neuts (auto) 4.0 3.1 Absolute Nucleated RBC 0.000 0.000 Nucleated RBC % 0.0 0.0 Sodium 130 L 134 L Potassium 3.7 3.9 Chloride 101 107 Carbon Dioxide 21 L 23 Anion Gap 8 4 BUN 18 H 13 D Creatinine 0.90 0.85 Estim Creat Clear Calc 40 43 Estimated GFR > 60 > 60 Glucose 89 96 Calcium 8.9 8.7 Magnesium 1.9 1.9 Total Bilirubin 0.6 0.6 AST 140 H 115 H ALT 53 H 45 H Alkaline Phosphatase 65 55 Total Creatine Kinase 1466 H 930 H Total Protein 6.2 L 5.7 L Albumin 3.5 3.1 L Free T3 pg/mL 2.2
[2025-03-26 11:53] LABS: Iron 36 ug/dL (37-170)
[2025-03-26 12:03] LABS: Percent Iron Saturation 11 % (20-50)
[2025-03-26 12:34] LABS: Ferritin 23.30 ng/mL (11.1-264)
[2025-03-26 12:46] LABS: Vitamin B12 943.0 pg/mL (239-931)
[2025-03-26] MEDS: cefTRIAXone 1 GM in SODIUM CHLORIDE 0.9% IV 50 ML 100 ML IVPB (22:14)
[2025-03-27] VITALS (10 sets, daily range): BP systolic 116–134; BP diastolic 47–61; PULSE 69–88; RESP 16–20; TEMP 36.5–36.6; O2SAT 98–100
[2025-03-27] MEDS: LEVOTHYROXINE SODIUM 50 MCG TABLET PO (05:14)
[2025-03-27 05:40] LABS: Hematocrit 28.8 % (37.0-47.0); Hemoglobin 9.1 g/dL (12.0-15.0); Immature Granulocyte Percent A 0.2 % (0-0.5); Lymphocytes Absolute Auto 0.97 K/mm3 (0.9-3.2); Mean Corpuscular HGB Conc 31.6 g/dl (32-36); Mean Corpuscular Hemoglobin 29.5 pg (26-34); Mean Corpuscular Volume 93.5 fl (80-100); Nucleated Red Blood Cells Absolute Auto 0.000 K/mm3 (0.0-0.012); Nucleated Red Blood Cells Perc 0.0 % (0.0-0.2); Platelet Count Result 198 k/mm3 (150-375); Red Blood Count 3.08 M/mm3 (4.2-5.4); White Blood Count 4.1 K/mm3 (4.5-10.0)
[2025-03-27 05:59] LABS: Alanine Aminotransferase 40 U/L (6-35); Albumin Level 3.0 g/dL (3.5-5.1); Alkaline Phosphatase 59 U/L (38-126); Anion Gap 5 mmol/L (4-12); Aspartate Amino Transferase 86 U/L (14-36); Bilirubin,Total 0.6 mg/dL (0.2-1.3); Blood Urea Nitrogen 7 mg/dL (7-17); Calcium 9.0 mg/dL (8.4-10.2); Carbon Dioxide 22 mmol/L (22-30); Chloride 109 mmol/L (98-107); Estimated CRCL calculation 47 ml/min; Estimated Glomerular Filt Rate > 60; Glucose 101 mg/dL (65-110); Magnesium 1.9 mg/dL (1.6-2.3); Potassium 3.5 mmol/L (3.4-5.0); Sodium 136 mmol/L (137-145); Total Protein 5.6 g/dL (6.3-8.2)
[2025-03-27] MEDS: EZETIMIBE 10 MG TABLET PO (08:28)
[2025-03-27] MEDS: TELMISARTAN 40 MG TABLET 80 MG PO (08:28)
--- NOTE | 2025-03-27 10:08 | PM.IMPN ---
Progress Note: A&P Assessment and Plan (1) Hyperlipidemia: Code(s): E78.5 - Hyperlipidemia, unspecified Status: Acute (2) History of hypertension: Code(s): Z86.79 - Personal history of other diseases of the circulatory system Status: Acute (3) History of hypothyroidism: Code(s): Z86.39 - Personal history of other endocrine, nutritional and metabolic disease Status: Acute (4) Cirrhosis: Code(s): K74.60 - Unspecified cirrhosis of liver Status: Acute (5) Portal venous hypertension: Code(s): K76.6 - Portal hypertension Status: Acute (6) Cholelithiasis: Code(s): K80.20 - Calculus of gallbladder without cholecystitis without obstruction Status: Acute (7) Transaminitis: Code(s): R74.01 - Elevation of levels of liver transaminase levels Status: Acute (8) UTI (urinary tract infection): Code(s): N39.0 - Urinary tract infection, site not specified Status: Acute (9) Anemia: Code(s): D64.9 - Anemia, unspecified Status: Acute (10) Rhabdomyolysis: Code(s): M62.82 - Rhabdomyolysis Status: Acute (11) Traumatic ecchymosis of face: Code(s): S00.83XA - Contusion of other part of head, initial encounter Status: Acute (12) Fall: Code(s): W19.XXXA - Unspecified fall, initial encounter Status: Acute (13) Confusion: Code(s): R41.0 - Disorientation, unspecified Status: Acute Plan This is a 74-year-old female who presents to the ED after a fall and with confusion. Her family note that she will intermittently experience confusion and has steadily been on the decline in general over the past few years. It also noted hallucination confabulating stories and also getting concerned about her pets missing even though they are in the house. Patient otherwise lives alone and last time they spoke with her was on Friday. When they went in to check on her yesterday she was found naked on the floor. It is unclear how long she has been down there. Her house was a mess as well. She reports that she was moving stuffs in her house. And while moving C cell and could not get up. There is a history of alcohol use. Patient states she drinks glass of wine nightly although has not had a drink since Friday. Family noted that she abuses alcohol. She has underlying dementia. In the ED are vitals were stable. Laboratory workup revealed WBC of 9.4 hemoglobin 10.6 platelet count 308 sodium low at 128 potassium 4.5 chloride 94 bicarbonate 22 BUN 24 creatinine 1.02 blood glucose 113 ammonia less than 9 total creatinine kinase is was 4788 represent leg rhabdomyolysis AST 2/50 ALT 75 total bilirubin of 1.4 alk phos rhythm 60 lipase level was normal at 130 TSH is 6.13 urinalysis showed more than 100 urine WBC 3-5 urine RBC UDS was negative eval alcoholism 10 acetaminophen less than 10 salicylate less than 1. EKG showed normal sinus rhythm with nonspecific ST-T changes. Troponin 0.05 7-0.[address] showed no acute intracranial process. Age-related changes noted. CT facial bone cervical spine showed left supraorbital scalp hematoma with no calvarial or maxillofacial fracture. Severe cervical and upper thoracic spondylosis with no acute osseous abnormality. Chest x-ray showed no acute cardiopulmonary disease CS abdomen pelvis CT was performed which showed no acute fracture or acute intrathoracic abdominal or pelvic process. Cirrhosis with portal hypertension noted cholelithiasis and small sliding-type hiatal hernia She is admitted for further treatment. Fall possible syncope. echo unremarkable. carotid doppler negative. pt ot to see. Working on placement Traumatic scalp hematoma Hyponatremia mild acute on chronic slowly improving. Elevated liver enzymes improving. likely due to alcohol use Cirrhosis of liver with portal hypertension Dementia not diagnosed before but indicative of this diagnosis UTI ceftriaxone follow urine culture which is pending History of alcohol abuse Hypothyroidism Hyperlipidemia Hypertension DVT prophylaxis Code status full code Subjective Date/time seen: 03/27/25 10:08 Interval history: Overnight events. No new complaints. More lucid today. Review of Systems Review of Systems: All systems reviewed & are unremarkable except as noted in HPI and below Exam Narrative: GENERAL: Frail looking, and in no acute distress. HEAD: Normocephalic, left forehead bruise. EYES: Left eye injected, right eye normal. Non icteric bilaterally ENT: Nares clear, no rhinorrhea or epistaxis. NECK: Supple. No meningismus. CHEST: Speaking in full sentences. No respiratory distress. Lungs clear to auscultation bilaterally without wheezes or crackles HEART: Regular rate and rhythm. . ABDOMEN: Soft, nondistended. No rigidity or guarding. Not peritoneal. No tenderness to palpation throughout. SKIN: Warm, dry. Well-healing ecchymosis around left eye and left restorationism. NEURO: No focal deficits. Alert. Following commands. Normal speech without aphasia or dysarthria. PSYCH: Normal mood and affect. Objective Data Vital Signs Vital Signs: Vital Signs - 24 hr 03/26/25 12:00 03/26/25 12:00 03/26/25 14:32 Temperature 98.9 F Pulse Rate 88 81 Respiratory Rate 18 Blood Pressure 124/59 L Pulse Oximetry 99 Oxygen Delivery Room Air Fraction of Inspired Oxygen 03/26/25 15:10 03/26/25 15:31 03/26/25 16:00 Temperature 98.1 F Pulse Rate 86 85 Respiratory Rate 18 Blood Pressure 120/51 L Pulse Oximetry 98 Oxygen Delivery Room Air Fraction of Inspired Oxygen 03/26/25 20:00 03/26/25 20:00 03/26/25 20:30 Temperature 98.1 F Pulse Rate 84 78 84 Respiratory Rate 18 18 Blood Pressure 131/65 Pulse Oximetry 98 98 Oxygen Delivery Room Air Fraction of Inspired Oxygen 03/26/25 21:20 03/27/25 00:00 03/27/25 04:00 Temperature Pulse Rate 73 73 Respiratory Rate Blood Pressure Pulse Oximetry 98 Oxygen Delivery Room Air Fraction of Inspired Oxygen 03/27/25 05:13 03/27/25 08:00 03/27/25 08:00 Temperature 97.8 F Pulse Rate 77 88 Respiratory Rate 16 Blood Pressure 117/54 L Pulse Oximetry 98 98 Oxygen Delivery Room Air Fraction of Inspired Oxygen Intake/Output Intake/Output: Intake & Output 03/24/25 03/25/25 03/26/25 03/27/25 23:59 23:59 23:59 23:59 Intake Total 3042.5 1640 460 Output Total 10 909 1850 1250 Balance -10 1902.5 -681 -925 Meds/Results Medications: Active Medications Generic Name Dose Route Start Last Admin Trade Name Freq PRN Reason Stop Dose Admin Acetaminophen 650 mg 03/25/25 01:52 Acetaminophen 325 Mg Tablet PO Q4H PRN Mild Pain (1-3) or Fever Ezetimibe 10 mg 03/26/25 09:00 03/27/25 08:28 Ezetimibe 10 Mg Tablet PO 10 mg DAILY OMID Administration Ceftriaxone Sodium 1 gm/ 50 mls @ 100 mls/hr 03/25/25 21:00 03/26/25 22:44 Sodium Chloride IVPB Infused Q24H OMID Infusion Levothyroxine Sodium 50 mcg 03/26/25 06:30 03/27/25 05:14 Levothyroxine Sodium 50 Mcg Tablet PO 50 mcg DAILY@0630 OMID Administration Ondansetron HCl 4 mg 03/25/25 01:52 Ondansetron Inj 4 Mg/2 Ml Vial IV PUSH Q4H PRN Nausea Telmisartan 80 mg 03/26/25 09:00 03/27/25 08:28 Telmisartan 40 Mg Tablet PO 80 mg DAILY OMID Administration Radiology Results: ITS Impressions Head CT 03/24/25 22:29 IMPRESSION: 1. No acute intracranial process. 2. Age-related changes including mild diffuse volume loss and mild scattered white matter hypoattenuation consistent with chronic small vessel ischemic disease. Head/Cervical Spine/Facial Bones CT 03/24/25 22:45 IMPRESSION: 1. Left supraorbital scalp hematoma with no calvarial or maxillofacial fracture. 2. Severe cervical and upper thoracic spondylosis with no acute osseous abnormality. Chest X-Ray 03/24/25 22:55 IMPRESSION: 1. No acute cardiopulmonary disease. Chest/Abdomen/Pelvis CT 03/24/25 23:33 IMPRESSION: 1. No acute fracture or acute intrathoracic, abdominal or pelvic process. 2. Cirrhosis with portal venous hypertension. 3. Cholelithiasis. 4. Small sliding-type hiatal hernia. Carotid Doppler Study 03/25/25 21:40 IMPRESSION: 1. <50% stenosis in the right internal carotid artery. 2. <50% stenosis in the left internal carotid artery. Labs Labs: Laboratory Results - last 24 hr 03/26/25 03/27/25 03:50 05:00 WBC 4.1 L RBC 3.08 L Hgb 9.1 L Hct 28.8 L MCV 93.5 MCH 29.5 MCHC 31.6 L RDW 15.2 H Plt Count 198 MPV 9.3 Immature Gran % (Auto) 0.2 Neut % (Auto) 53.9 Lymph % (Auto) 23.9 [place] % (Auto) 14.3 H Eos % (Auto) 6.7 H Baso % (Auto) 1.0 Lymph # (Auto) 0.97 [place] # (Auto) 0.6 Eos # (Auto) 0.3 Baso # (Auto) 0.0 Abs Immat Gran (auto) 0.01 Absolute Neuts (auto) 2.2 Absolute Nucleated RBC 0.000 Nucleated RBC % 0.0 Sodium 136 L Potassium 3.5 Chloride 109 H Carbon Dioxide 22 Anion Gap 5 BUN 7 D Creatinine 0.77 Estim Creat Clear Calc 47 Estimated GFR > 60 Glucose 101 Calcium 9.0 Magnesium 1.9 Iron 36 L TIBC 315 % Saturation 11 L Ferritin 23.30 Total Bilirubin 0.6 AST 86 H ALT 40 H Alkaline Phosphatase 59 Total Protein 5.6 L Albumin 3.0 L Vitamin B12 943.0 H Folate 4.1
[2025-03-27] MEDS: cefTRIAXone 1 GM in SODIUM CHLORIDE 0.9% IV 50 ML 100 ML IVPB (20:50)
[2025-03-28] VITALS (9 sets, daily range): BP systolic 113–129; BP diastolic 50–62; PULSE 65–91; RESP 16–18; TEMP 36.4–37; O2SAT 98–100
[2025-03-28] MEDS: LEVOTHYROXINE SODIUM 50 MCG TABLET PO (05:21)
[2025-03-28] MEDS: EZETIMIBE 10 MG TABLET PO (08:35)
[2025-03-28] MEDS: TELMISARTAN 40 MG TABLET 80 MG PO (08:36)
--- NOTE | 2025-03-28 12:05 | WPDCDIQUERY2 ---
CDI Query Clarification Request 1) Please clarify type of rhabdomyolysis if known: ? Traumatic or muscle compression (e.g., crush syndrome or prolonged immobilization) ? Non-traumatic exertional (e.g., marked exertion in untrained individuals, hyperthermia, or metabolic myopathies) ? Non-traumatic no exertional (e.g., drugs or toxins, infections, or electrolyte disorders) 2) Please clarify the underlying possible/probable/suspected cause for the in the confusion in progress notes: ? Encephalopathy (metabolic, COVID, hepatic, hypoxic, uremic, [place], other) ? Neurologic condition (CVA/TIA/NPH/seizure) ? Electrolyte/metabolic imbalance/dehydration ? Infectious process (i.e. meningitis/encephalitis) ? Psychiatric condition ? Respiratory condition ? Dementia ? Other, please specify ? Unknown/unable to determine The medical chart reflects the following: Fall possible syncope. echo unremarkable. carotid doppler negative. pt ot to see. Working on placement Traumatic scalp hematoma Hyponatremia mild acute on chronic slowly improving. Elevated liver enzymes improving. likely due to alcohol use Cirrhosis of liver with portal hypertension Dementia not diagnosed before but indicative of this diagnosis UTI ceftriaxone follow urine culture which is pending (13) Confusion: Code(s): R41.0 - Disorientation, unspecified Status: Acute Plan This is a 74-year-old female who presents to the ED after a fall and with confusion. Her family note that she will intermittently experience confusion and has steadily been on the decline in general over the past few years. It also noted hallucination confabulating stories and also getting concerned about her pets missing even though they are in the house. Patient otherwise lives alone and last time they spoke with her was on Friday. When they went in to check on her yesterday she was found naked on the floor. It is unclear how long she has been down there. Laboratory workup revealed WBC of 9.4 hemoglobin 10.6 platelet count 308 sodium low at 128 potassium 4.5 chloride 94 bicarbonate 22 BUN 24 creatinine 1.02 blood glucose 113 ammonia less than 9 total creatinine kinase is was 4788 represent leg rhabdomyolysis AST 2/50 ALT 75 total bilirubin of 1.4 alk phos rhythm 60 lipase level was normal at 130 TSH is 6.13 urinalysis showed more than 100 urine WBC 3-5 urine RBC UDS was negative eval alcoholism 10 acetaminophen less than 10 salicylate less than 1. EKG showed normal sinus rhythm with nonspecific ST-T changes. Troponin 0.05 7-0.053 IV fluids IV ceftriaxone
--- NOTE | 2025-03-28 14:36 | P.PNIM_ITS ---
Progress Note: A&P Assessment and Plan (1) Hyperlipidemia: Code(s): E78.5 - Hyperlipidemia, unspecified Status: Acute (2) History of hypertension: Code(s): Z86.79 - Personal history of other diseases of the circulatory system Status: Acute (3) History of hypothyroidism: Code(s): Z86.39 - Personal history of other endocrine, nutritional and metabolic disease Status: Acute (4) Cirrhosis: Code(s): K74.60 - Unspecified cirrhosis of liver Status: Acute (5) Portal venous hypertension: Code(s): K76.6 - Portal hypertension Status: Acute (6) Cholelithiasis: Code(s): K80.20 - Calculus of gallbladder without cholecystitis without obstruction Status: Acute (7) Transaminitis: Code(s): R74.01 - Elevation of levels of liver transaminase levels Status: Acute (8) UTI (urinary tract infection): Code(s): N39.0 - Urinary tract infection, site not specified Status: Acute (9) Anemia: Code(s): D64.9 - Anemia, unspecified Status: Acute (10) Rhabdomyolysis: Code(s): M62.82 - Rhabdomyolysis Status: Acute (11) Traumatic ecchymosis of face: Code(s): S00.83XA - Contusion of other part of head, initial encounter Status: Acute (12) Fall: Code(s): W19.XXXA - Unspecified fall, initial encounter Status: Acute (13) Confusion: Code(s): R41.0 - Disorientation, unspecified Status: Acute Plan This is a 74-year-old female who presents to the ED after a fall and with confusion. Her family note that she will intermittently experience confusion and has steadily been on the decline in general over the past few years. It also noted hallucination confabulating stories and also getting concerned about her pets missing even though they are in the house. Patient otherwise lives alone and last time they spoke with her was on Friday. When they went in to check on her yesterday she was found naked on the floor. It is unclear how long she has been down there. Her house was a mess as well. She reports that she was moving stuffs in her house. And while moving C cell and could not get up. There is a history of alcohol use. Patient states she drinks glass of wine nightly although has not had a drink since Friday. Family noted that she abuses alcohol. She has underlying dementia. In the ED are vitals were stable. Laboratory workup revealed WBC of 9.4 hemoglobin 10.6 platelet count 308 sodium low at 128 potassium 4.5 chloride 94 bicarbonate 22 BUN 24 creatinine 1.02 blood glucose 113 ammonia less than 9 total creatinine kinase is was 4788 represent leg rhabdomyolysis AST 2/50 ALT 75 total bilirubin of 1.4 alk phos rhythm 60 lipase level was normal at 130 TSH is 6.13 urinalysis showed more than 100 urine WBC 3-5 urine RBC UDS was negative eval alcoholism 10 acetaminophen less than 10 salicylate less than 1. EKG showed normal sinus rhythm with nonspecific ST-T changes. Troponin 0.05 7-0.[address] showed no acute intracranial process. Age-related changes noted. CT facial bone cervical spine showed left supraorbital scalp hematoma with no calvarial or maxillofacial fracture. Severe cervical and upper thoracic spondylosis with no acute osseous abnormality. Chest x-ray showed no acute cardiopulmonary disease CS abdomen pelvis CT was performed which showed no acute fracture or acute intrathoracic abdominal or pelvic process. Cirrhosis with portal hypertension noted cholelithiasis and small sliding-type hiatal hernia She is admitted for further treatment. Fall possible syncope. echo unremarkable. carotid doppler negative. pt ot to see. Working on placement Traumatic scalp hematoma Hyponatremia mild acute on chronic slowly improving. Elevated liver enzymes improving. likely due to alcohol use Cirrhosis of liver with portal hypertension Dementia not diagnosed before but presentation indicative of this diagnosis UTI ceftriaxone follow urine culture which is pending. Switch to oral at discharge History of alcohol abuse Hypothyroidism Hyperlipidemia Hypertension DVT prophylaxis Code status full code Subjective Date/time seen: 03/28/25 14:36 Interval history: No overnight events. No new complaints. Urine culture still pending. Review of Systems Review of Systems: All systems reviewed & are unremarkable except as noted in HPI and below Exam Narrative: GENERAL: Frail looking, and in no acute distress. HEAD: Normocephalic, left forehead bruise. EYES: Left eye injected, right eye normal. Non icteric bilaterally ENT: Nares clear, no rhinorrhea or epistaxis. NECK: Supple. No meningismus. CHEST: Speaking in full sentences. No respiratory distress. Lungs clear to a uscultation bilaterally without wheezes or crackles HEART: Regular rate and rhythm. . ABDOMEN: Soft, nondistended. No rigidity or guarding. Not peritoneal. No tenderness to palpation throughout. SKIN: Warm, dry. Well-healing ecchymosis around left eye and left [employer]. NEURO: No focal deficits. Alert. Following commands. Normal speech without aphasia or dysarthria. PSYCH: Normal mood and affect. Objective Data Vital Signs Vital Signs: Vital Signs - 24 hr 03/27/25 16:00 03/27/25 16:11 03/27/25 20:00 Temperature 97.7 F Pulse Rate 77 78 78 Respiratory Rate 16 20 Blood Pressure 134/61 Pulse Oximetry 100 98 Oxygen Delivery Room Air Fraction of Inspired Oxygen 21 03/27/25 20:00 03/27/25 20:46 03/27/25 21:22 Temperature 97.7 F Pulse Rate 78 78 78 Respiratory Rate 16 20 Blood Pressure 116/47 L Pulse Oximetry 98 98 Oxygen Delivery Room Air Fraction of Inspired Oxygen 21 03/28/25 00:00 03/28/25 04:00 03/28/25 05:20 Temperature 98.6 F Pulse Rate 67 65 69 Respiratory Rate 16 Blood Pressure 113/61 Pulse Oximetry 99 Oxygen Delivery Fraction of Inspired Oxygen 03/28/25 08:00 03/28/25 08:00 03/28/25 12:00 Temperature Pulse Rate 74 91 Respiratory Rate Blood Pressure Pulse Oximetry 99 Oxygen Delivery Room Air Fraction of Inspired Oxygen Intake/Output Intake/Output: Intake & Output 03/25/25 03/26/25 03/27/25 03/28/25 23:59 23:59 23:59 23:59 Intake Total 3042.5 1640 1870 750 Output Total 700 1850 2000 1550 Balance 2342.5 -210 -130 -800 Meds/Results Medications: Active Medications Generic Name Dose Route Start Last Admin Trade Name Freq PRN Reason Stop Dose Admin Acetaminophen 650 mg 03/25/25 01:52 Acetaminophen 325 Mg Tablet PO Q4H PRN Mild Pain (1-3) or Fever Ezetimibe 10 mg 03/26/25 09:00 03/28/25 08:35 Ezetimibe 10 Mg Tablet PO 10 mg DAILY OMID Administration Ceftriaxone Sodium 1 gm/ 50 mls @ 100 mls/hr 03/25/25 21:00 03/27/25 21:20 Sodium Chloride IVPB Infused Q24H OMID Infusion Levothyroxine Sodium 50 mcg 03/26/25 06:30 03/28/25 05:21 Levothyroxine Sodium 50 Mcg Tablet PO 50 mcg DAILY@0630 OMID Administration Ondansetron HCl 4 mg 03/25/25 01:52 Ondansetron Inj 4 Mg/2 Ml Vial IV PUSH Q4H PRN Nausea Telmisartan 80 mg 03/26/25 09:00 03/28/25 08:36 Telmisartan 40 Mg Tablet PO 80 mg DAILY OMID Administration Radiology Results: ITS Impressions Head CT 03/24/25 22:29 IMPRESSION: 1. No acute intracranial process. 2. Age-related changes including mild diffuse volume loss and mild scattered white matter hypoattenuation consistent with chronic small vessel ischemic disease. Head/Cervical Spine/Facial Bones CT 03/24/25 22:45 IMPRESSION: 1. Left supraorbital scalp hematoma with no calvarial or maxillofacial fracture. 2. Severe cervical and upper thoracic spondylosis with no acute osseous abnormality. Chest X-Ray 03/24/25 22:55 IMPRESSION: 1. No acute cardiopulmonary disease. Chest/Abdomen/Pelvis CT 03/24/25 23:33 IMPRESSION: 1. No acute fracture or acute intrathoracic, abdominal or pelvic process. 2. Cirrhosis with portal venous hypertension. 3. Cholelithiasis. 4. Small sliding-type hiatal hernia. Carotid Doppler Study 03/25/25 21:40 IMPRESSION: 1. <50% stenosis in the right internal carotid artery. 2. <50% stenosis in the left internal carotid artery.
[2025-03-28] MEDS: cefTRIAXone 1 GM in SODIUM CHLORIDE 0.9% IV 50 ML 100 ML IVPB (21:09)
[2025-03-29] VITALS: PULSE 65
[2025-03-29 01:12] VITALS: O2SAT 99
[2025-03-29 04:00] VITALS: PULSE 80
[2025-03-29 04:21] VITALS: BP 130/67; PULSE 76; RESP 14; TEMP 36.3; O2SAT 98
[2025-03-29] MEDS: LEVOTHYROXINE SODIUM 50 MCG TABLET PO (05:43)
[2025-03-29 08:00] VITALS: BP 121/52; PULSE 69; PULSE 76; RESP 18; TEMP 35.5; O2SAT 100; O2SAT 98
[2025-03-29] MEDS: TELMISARTAN 40 MG TABLET 80 MG PO (08:18)
[2025-03-29] MEDS: EZETIMIBE 10 MG TABLET PO (08:18)
--- NOTE | 2025-03-29 10:55 | PCNFU ---
Nutrition Follow-Up Complete: Suboptimal po intake related to appetite as evidenced by pt report and charted intake Goal: PO intake 50% or greater Patient is meeting goal. No new goal. Pt current nutrition is Heart Healthy with Ensure Plus High Protein. Last recorded weight is 67.9 kg, weight up from 63.3 kg on admit. Bowel Motility: Last reported BM 03/29 Labs Reviewed:Na 136, Alb 3.0 Meds Noted: Synthroid Skin: WNL Additional Notes: Patient is tolerating a heart healthy diet. Oral Intake has been > 50%. Ensure Plus High Protein providing an additional 350 kcal and 20 gm protein. Agree with diet orders. Monitor intake, wt, labs. Follow up in 7 days
--- NOTE | 2025-03-29 11:37 | P.DS_ITS ---
DS: Admitting Diagnosis Discharge Date 03/29/2025 Admitting Diagnosis fall DS: Discharge Diagnosis Discharge Diagnosis (1) Hyperlipidemia: Code(s): E78.5 - Hyperlipidemia, unspecified Status: Acute (2) History of hypertension: Code(s): Z86.79 - Personal history of other diseases of the circulatory system Status: Acute (3) History of hypothyroidism: Code(s): Z86.39 - Personal history of other endocrine, nutritional and metabolic disease Status: Acute (4) Cirrhosis: Code(s): K74.60 - Unspecified cirrhosis of liver Status: Acute (5) Portal venous hypertension: Code(s): K76.6 - Portal hypertension Status: Acute (6) Cholelithiasis: Code(s): K80.20 - Calculus of gallbladder without cholecystitis without obstruction Status: Acute (7) Transaminitis: Code(s): R74.01 - Elevation of levels of liver transaminase levels Status: Acute (8) UTI (urinary tract infection): Code(s): N39.0 - Urinary tract infection, site not specified Status: Acute (9) Anemia: Code(s): D64.9 - Anemia, unspecified Status: Acute (10) Rhabdomyolysis: Code(s): M62.82 - Rhabdomyolysis Status: Acute (11) Traumatic ecchymosis of face: Code(s): S00.83XA - Contusion of other part of head, initial encounter Status: Acute (12) Fall: Code(s): W19.XXXA - Unspecified fall, initial encounter Status: Acute (13) Confusion: Code(s): R41.0 - Disorientation, unspecified Status: Acute DS: Summary Hospital Course Hospital Course: This is a 74-year-old female who presents to the ED after a fall and with confusion. Her family note that she will intermittently experience confusion and has steadily been on the decline in general over the past few years. It also noted hallucination confabulating stories and also getting concerned about her pets missing even though they are in the house. Patient otherwise lives alone and last time they spoke with her was on Friday. When they went in to check on her yesterday she was found naked on the floor. It is unclear how long she has been down there. Her house was a mess as well. She reports that she was moving stuffs in her house. And while moving C cell and could not get up. There is a history of alcohol use. Patient states she drinks glass of wine nightly although has not had a drink since Friday. Family noted that she abuses alcohol. She has underlying dementia. In the ED are vitals were stable. Laboratory workup revealed WBC of 9.4 hemoglobin 10.6 platelet count 308 sodium low at 128 potassium 4.5 chloride 94 bicarbonate 22 BUN 24 creatinine 1.02 blood glucose 113 ammonia less than 9 total creatinine kinase is was 4788 represent leg rhabdomyolysis AST 2/50 ALT 75 total bilirubin of 1.4 alk phos rhythm 60 lipase level was normal at 130 TSH is 6.13 urinalysis showed more than 100 urine WBC 3-5 urine RBC UDS was negative eval alcoholism 10 acetaminophen less than 10 salicylate less than 1. EKG showed normal sinus rhythm with nonspecific ST-T changes. Troponin 0.05 7-0.[address] showed no acute intracranial process. Age-related changes noted. CT facial bone cervical spine showed left supraorbital scalp hematoma with no calvarial or maxillofacial fracture. Severe cervical and upper thoracic spondylosis with no acute osseous abnormality. Chest x-ray showed no acute cardiopulmonary disease CS abdomen pelvis CT was performed which showed no acute fracture or acute intrathoracic abdominal or pelvic process. Cirrhosis with portal hypertension noted cholelithiasis and small sliding-type hiatal hernia She is admitted for further treatment. Fall possible syncope. echo unremarkable. carotid doppler negative. pt ot to see. accepted at [facility] and going there. Traumatic scalp hematoma improving and stable Hyponatremia mild acute on chronic slowly improving. Elevated liver enzymes improving. likely due to alcohol use Cirrhosis of liver with portal hypertension Dementia not diagnosed before but presentation indicative of this diagnosis UTI ceftriaxone follow urine culture which is Growing Gram-negative bacilli. Yet to be identified. Switch to oral at discharge History of alcohol abuse Hypothyroidism Hyperlipidemia Hypertension DVT prophylaxis Code status full code Time Spent with Patient Time attestation: Total time spent providing and/or coordinating discharge services: 35 minutes Exam Narrative: GENERAL: Frail looking, and in no acute distress. HEAD: Normocephalic, left forehead bruise. EYES: Left eye injected, right eye normal. Non icteric bilaterally ENT: Nares clear, no rhinorrhea or epistaxis. NECK: Supple. No meningismus. CHEST: Speaking in full sentences. No respiratory distress. Lungs clear to auscultation bilaterally without wheezes or crackles HEART: Regular rate and rhythm. . ABDOMEN: Soft, nondistended. No rigidity or guarding. Not peritoneal. No tenderness to palpation throughout. SKIN: Warm, dry. Well-healing ecchymosis around left eye and left congregation. NEURO: No focal deficits. Alert. Following commands. Normal speech without aphasia or dysarthria. PSYCH: Normal mood and affect. DS: Data Data Completed and Pending Labs on day of discharge: Preliminary micro results at discharge 03/24/25 22:47 - Preliminary Urine Clean Catch Gram negative bacilli isolated Procedures/Treatments: Exam Type: CA echo dop color flow w con Complete two-dimensional, color flow and Doppler transthoracic echocardiogram is performed with contrast to opacify the left ventricle and to improve the deliniation of the left ventricle endocardial borders. Staff Referring Physician: Neil Marquez Police Sergeant: Nancy Tiwari Attending Provider: Ana Cristina Woods Contrast/Agitated Saline Contrast/Ag. Saline: Definity Amount: 2.00 ml Administered By: Nancy Tiwari Existing IV Access: Yes IV Access Condition: patent with no signs of infiltration Summary 1. Definity contrast administered improved wall motion interpretation. 2. Left ventricular chamber dimension is normal. 3. Left ventricular systolic function is normal, estimated at 65-70. 4. The left ventricular diastolic function is grade I diastolic dysfunction. 5. E/e' 10 is mildly elevated. 6. Left atrial chamber dimension is mildly enlarged. 7. There is severe aortic valve sclerosis. 8. There is mild aortic valve stenosis with a peak velocity of 245 cm/s, mean gradient of 10 mmHg, and aortic valve area of 1.7 cm2. 9. The mitral valve has a moderately calcified annulus. 10. No pulmonary hypertension, estimated pulmonary arterial systolic pressure is 27 mmHg. Left Ventricle E/e' 10 is mildly elevated. Left ventricular chamber dimension is normal. Left ventricular systolic function is normal, estimated at 65-70. The left ventricular diastolic function is grade I diastolic dysfunction. Definity contrast administered improved wall motion interpretation. Right Ventricle Right ventricular chamber dimension is normal. Right ventricular systolic function is normal and with normal TAPSE 2.1 cm. Left Atria Left atrial chamber dimension is mildly enlarged. Right Atria Right atrial chamber dimension is normal. Aortic Valve The aortic valve is trileaflet. There is severe aortic valve sclerosis. There is mild aortic valve stenosis with a peak velocity of 245 cm/s, mean gradient of 10 mmHg, and aortic valve area of 1.7 cm2. There is no aortic valve regurgitation. Pulmonic Valve There is no pulmonic regurgitation. Mitral Valve The mitral valve has a moderately calcified annulus. There is no mitral valve stenosis. There is no mitral valve regurgitation. Tricuspid Valve There is mild tricuspid valve regurgitation. No pulmonary hypertension, estimated pulmonary arterial systolic pressure is 27 mmHg. Pericardium/Pleural There is no pericardial effusion. Inferior Vena Cava Normal inferior vena cava with >50% collapse upon inspiration consistent with normal right atrial pressure, 5 mmHg. Aorta The aortic root size at the sinus of Valsalva is normal. Imaging Radiologist's impression: ITS Impressions Head CT 03/24/25 22:29 IMPRESSION: 1. No acute intracranial process. 2. Age-related changes including mild diffuse volume loss and mild scattered white matter hypoattenuation consistent with chronic small vessel ischemic disease. Head/Cervical Spine/Facial Bones CT 03/24/25 22:45 IMPRESSION: 1. Left supraorbital scalp hematoma with no calvarial or maxillofacial fracture. 2. Severe cervical and upper thoracic spondylosis with no acute osseous abnormality. Chest X-Ray 03/24/25 22:55 IMPRESSION: 1. No acute cardiopulmonary disease. Chest/Abdomen/Pelvis CT 03/24/25 23:33 IMPRESSION: 1. No acute fracture or acute intrathoracic, abdominal or pelvic process. 2. Cirrhosis with portal venous hypertension. 3. Cholelithiasis. 4. Small sliding-type hiatal hernia. Carotid Doppler Study 03/25/25 21:40 IMPRESSION: 1. <50% stenosis in the right internal carotid artery. 2. <50% stenosis in the left internal carotid artery. Discharge Plan Discharge Attending physician on discharge: Neil Marquez Discharging Clinician: Neil Marquez Anticipated Discharge Date/Time: 03/29/25 11:41 Patient Disposition: SNF Activity: as tolerated Diet: regular Patient Instructions: Antibiotic Form, Heart Attack (GEN), Acute Kidney Injury (GEN), Heart Healthy Diet (GEN), Urinary Tract Infection in Older Adults (GEN) Patient Language: Belgian Stand Alone Forms: General Discharge Information Follow-up/Referrals: Lesa,Janet Trejo APRN [Primary Care Provider] - 1 Week Discharge Medications: New cefdinir 300 mg capsule 300 mg PO Q12H Qty: 6 0RF Continued levothyroxine 50 mcg tablet 50 mcg PO DAILY telmisartan 80 mg tablet 80 mg PO DAILY ezetimibe 10 mg tablet 10 mg PO DAILY Date of admission: 03/25/25 11:34 Primary Care Provider: LesaJanet Admitting Provider: Ana Cristina Woods Attending physician on admission: Ana Cristina Woods Condition: Stable
== END 2025-03-29 16:10 | DRG 690 ==
LOC: ANHED 03-25 02:33 → ANHIMU 03-25 03:11 → ANH2MED 03-29 11:41 → ANHIMU 03-30 11:43
PROVIDERS: Admitting Provider General Practice; Emergency Provider Student in an Organized Health Care Education/Training Program; PCP Nurse Practitioner Family; Visit Provider Internal Medicine
DX: N39.0 Urinary tract infection, site not specified (principal); K76.6 Portal hypertension; M62.82 Rhabdomyolysis; E87.1 Hypo-osmolality and hyponatremia; R44.3 Hallucinations, unspecified; S00.03XA Contusion of scalp, initial encounter; W19.XXXA Unspecified fall, initial encounter; B96.20 Unspecified Escherichia coli [E. coli] as the cause of diseases classified elsewhere; D64.9 Anemia, unspecified; E78.5 Hyperlipidemia, unspecified; E03.9 Hypothyroidism, unspecified; F10.10 Alcohol abuse, uncomplicated; F03.90 Unspecified dementia, unspecified severity, without behavioral disturbance, psychotic disturbance, mood disturbance, and anxiety; I10 Essential (primary) hypertension; K80.20 Calculus of gallbladder without cholecystitis without obstruction; K74.60 Unspecified cirrhosis of liver; K44.9 Diaphragmatic hernia without obstruction or gangrene; M47.813 Spondylosis without myelopathy or radiculopathy, cervicothoracic region; R41.0 Disorientation, unspecified
CPT/HCPCS: 36415; 70450; 70486; 71045; 71260; 72125; 74177; 80053; 80143; 80179; 80307; 81001; 82077; 82140; 82550; 82607; 82728; 82746; 83540; 83550; 83690; 83735; 84439; 84443; 84481; 84484; 85025; 85610; 85730; 87086; 93005; 93880; 96361; 96365; 96375; 97110; 97162; 97166; 97530; 97535; 99285; A9270; C8929; G0378; J0696; J7030; J7040; Q9957; Q9967